=== PATIENT | male | born 1960 | race Caucasian/White ===

== ENCOUNTER 2019-07-08 10:24 | Inpatient (IN) ==
--- NOTE | 2019-07-08 13:01 | Internal Med History&Physical ---
Date of Encounter: 07/08/19 Time of Encounter: 12:58 Internal Medicine - H&P: HPI Chief complaint: send by orthopedics Admitted From: Home Plans for Post Hospital Care: Home History of present illness: Mr. Verma is a 59 year old male with past medical history of sleep apnea on CPAP, CHF, diabetes, hypertension, history of ME in 97 came in from orthopedics office as a direct admitted for shoulder infection. Patient reportedly had 3 surgeries in the past 2 months on his shoulder the last one on 06/26/19 with right he refers total shoulder revision. Patient was seen by orthopedist at his clinic yesterday with complain of fevers chills, redness and swelling since he woke up yesterday. Patient was given antibiotic as outpatient however due to failure of improvement as he was seen today he was asked to come to Hospital for further management. Patient reports drenching sweats for about a week and diarrhea 3 episodes yesterday. Denies any chest pain shortness of breath leg swelling or abdominal pain. He denies any shoulder pain and has only noticed redness and swelling that suddenly started on Saturday. Patient was directly admitted for further workup and treatment. Above-mentioned history was confirmed. Patient without any pain or other complaints. Denies any allergies. Past Med Surg Social Fam HX - Past Medical History Medical history: coronary artery disease, diabetes, GERD, hyperlipidemia, hypertension, myocardial infarction Additional medical history: sleep apnea. hiatal hernia. melanoma neck and fa ce. melanoma Psychiatric history: anxiety, depression - Past Surgical History Surgical History: cholecystectomy, IVC Filter Additional surgical history: heart cath. freeman. rotator cuff. lap band. right shoulder x 3. heart stent - Social History Smoking Status: Former smoker Smokeless Tobacco Status: No Alcohol use: none Drug use: none - Family History Mother Living Status: Age at : 53 Cause of : ME Hx Family Cardiac Disorders: Yes Hx Family Reproductive Disorders: Yes Father Living Status: Age at : 78 Hx Family Respiratory Disorders: Yes Internal Medicine - H&P: Meds Amlodipine Besylate 10 mg PO DAILY 05/27/19 [History] Aspirin [Adult Aspirin] 81 mg PO DAILY 05/27/19 [History] Furosemide [Lasix] 40 mg PO DAILY 05/27/19 [History] Gabapentin 1,200 mg PO TID 05/27/19 [History] Glimepiride [Amaryl] 4 mg PO DAILY 05/27/19 [History] Insulin Regular, Human [Novolin R] 10 unit SQ TIDWM 05/27/19 [History] Isosorbide MONOnitrate (24 HR) [Imdur] 60 mg PO DAILY 05/27/19 [History] Meloxicam 15 mg PO DAILY 05/27/19 [History] Metformin HCl 1,000 mg PO DAILY 05/27/19 [History] Metoprolol Succinate [Toprol Xl] 100 mg PO HS 05/27/19 [History] Pioglitazone HCl 45 mg PO DAILY 05/27/19 [History] Rosuvastatin Calcium 20 mg PO HS 05/27/19 [History] Venlafaxine HCl [Venlafaxine HCl ER] 225 mg PO DAILY 05/27/19 [History] hydrOXYzine HCl [Hydroxyzine HCl] 25 mg PO Q8H PRN 05/27/19 [History] raNITIdine HCl [Zantac] 150 mg PO HS 05/27/19 [History] Terazosin [Hytrin] 5 mg PO HS 06/12/19 [History] Allergy/AdvReac Type Severity Reaction Status Date / Time adhesive tape AdvReac Rash Verified 05/27/19 07:06 All Systems PM: A 10-system review of systems was performed and is negative for pertinent findings except as documented above in the HPI. - Constitutional Exam: Constitutional: Vitals as noted. Conversant. No Apparent Distress. Morbidly obese. Eyes : Sclera white, conjunctiva clear, no lid lag, PEARLA. ENT : Grossly normal hearing. Oropharyngeal exam unremarkable. Moist mucus membranes. No JVD, no cervical lymphadenopathy. no thyromegaly or mass. Respiratory : Clear to auscultation bilaterally. No accessory muscle use, rales, rhonchi or wheezes Cardiovascular : RRR, +S1, +S2. no murmur, gallop, rubs. No chest wall tenderness GI/Abdominal : Soft, Non-tender, Non-distended, normal bowel sounds, no peritoneal signs. no orgenomegaly or mass appreciated. no hernia. Musculoskeletal: pulses palpable and symmetrical in UE/LE. no calf tenderness. Rt shoulder with induration, redness over incision 10x10 cm. Not tender. Has fluctuance Neurological: AO X3, CN II-XII grossly intact, grossly normal motor and sensory exam. Skin: as above Internal Med - H&P Results - Impressions ITS Impressions Shoulder CT 07/08/19 12:14 IMPRESSION: Large (approximately 12 x 9 x 7 cm) air and fluid collection overlying the anterior aspect of the right shoulder arthroplasty involving the subcutaneous tissues, anterior shoulder musculature and surrounding the prosthesis. This is most consistent with abscess. D/ / 07/08/2019 12:32:48 Josef Chew MD / Trudi dale Interpreting Provider: Josef Chew MD - Assessment and Plan (1) Shoulder abscess Current Visit: Yes Status: Acute Assessment and plan: Patient with signs of cellulitis and CT with evidence of abscess. Patient has prosthesis in right shoulder. Orthopedics has been consulted and patient will likely go for surgery tomorrow for washout. We will keep nothing by mouth after midnight Patient likely with septic arthritis and will need long-term IV antibiotic. We will start empiric vancomycin and Zosyn for now and consult infectious disease. Patient hemodynamically stable. We will obtain CBC, BMP, ESR, CRP. (2) Diabetes Current Visit: Yes Status: Acute Assessment and plan: Keep patient on sliding scale insulin and diabetic diet Accu-Cheks and 5 premature insulin Hold home oral hypoglycemics for now Qualifiers: Diabetes mellitus type: type 2 Diabetes mellitus moth exterminator insulin use: with moth exterminator use Diabetes mellitus complication status: without complication Qualified Code(s): E11.9 - Type 2 diabetes mellitus without complications; Z79.4 - prison (current) use of insulin (3) HTN (hypertension) Current Visit: Yes Status: Acute Assessment and plan: Continue home Toprol, Imdur and amlodipine Qualifiers: Hypertension type: essential hypertension Qualified Code(s): I10 - Essential (primary) hypertension (4) CHF (congestive heart failure) Current Visit: Yes Status: Acute Assessment and plan: Patient with known history of CHF on Lasix at home unclear systolic or diastolic. Given patient plan for surgery of an EKG and echocardiogram. Patient without chest pain at this point or signs of volume overload. Hold Lasix for now. Qualifiers: Heart failure type: unspecified Heart failure chronicity: chronic Qualified Code(s): I50.9 - Heart failure, unspecified (5) Sleep apnea Current Visit: Yes Status: Acute Assessment and plan: We will keep patient on CPAP at night Qualifiers: Sleep apnea type: unspecified type Qualified Code(s): G47.30 - Sleep apnea, unspecified (6) Arthritis Current Visit: Yes Status: Acute Assessment and plan: Long-standing history of arthritis in knees and shoulder and back We will consult PT and OT after procedure. (7) DVT prophylaxis Current Visit: Yes Status: Acute Assessment and plan: Keep on heparin subcutaneous - Time Spent With Patient Total time spent is greater than 50% in coordination of care (as documented) at patient's floor/unit and/or counseling patient:
[2019-07-08] MEDS ORDERED: Naloxone 0.4 MG/ML INJ IVP PRN (13:02)
[2019-07-08 14:20] LABS: Hemoglobin 11.5 g/dL (12.9-16.9); Mean Corpuscular Hemoglobin 26.6 pg (28.0-33.3); Red Cell Distribution Width 13.4 % (11.5-14.5)
[2019-07-08 14:34] LABS: BUN/Creatinine Ratio 14 (6-26); Blood Urea Nitrogen 13 mg/dL (8-23); C-Reactive Protein 142 mg/L (Less than 10); Calcium 9.2 mg/dL (8.6-10.3); Carbon Dioxide 31 mEq/L (23-29); Chloride 98 mEq/L (98-107); Glucose 264 mg/dL (70-105); Osmolality,Calculated 291 (280-300); Potassium 4.1 mEq/L (3.5-5.1); Sodium 136 mEq/L (136-145); eGFR For African Americans > 60 (> 60); eGFR For Non-African Americans > 60 (> 60)
[2019-07-08 15:42] LABS: Basophils # 0.1 K/mcL (0.0-0.2); Basophils % 0.8 %; Eosinophils # 0.2 K/mcL (0.0-0.6); Eosinophils % 1.6 %; Hematocrit 35.6 % (37.5-50.1); Immature Granulocytes % 0.5 % (0-4); Lymphocytes # 2.1 K/mcL (0.6-4.6); Lymphocytes % 21.1 %; Mean Corpuscular HGB Conc 32.3 g/dL (31.6-35.5); Mean Corpuscular Volume 82.2 fL (83.0-100.0); Mean Platelet Volume 10.2 fL (9.4-12.4); Monocytes # 0.7 K/mcL (0.0-1.3); Monocytes % 7.3 %; Platelet Count 436 K/mcL (140-400); Red Blood Count 4.33 M/mcL (4.19-5.50); Segmented Neutrophils % 68.7 %; White Blood Count 10.1 K/mcL (4.3-11.1)
[2019-07-08 15:48] LABS: Neutrophils # 6.9 K/mcL (1.6-8.9)
--- NOTE | 2019-07-08 15:51 | Infectious Disease Consult ---
Infectious Disease-Consult - Encounter Date/Time Date of Encounter: 07/08/19 Time of Encounter: 15:48 - Data of Consult Patient: new to practice Reason for consult: "septic arthritis" Consult date: 07/08/19 Requesting Physician: Laurel Stratton MD Primary Care Provider: Federico Clark DO - [facility] HPI: Mr. Verma is a 59-year-old male with a past medical history of obstructive sleep apnea compliant with CPAP, CHF, diabetes, hypertension, NM, and CAD. He was admitted to the hospital 07/08/15 for right shoulder infection. We are consulted 07/08/19 for further workup and treatment recommendations for right shoulder infection. Briefly, the patient is a 59-year-old male with past medical history as stated above. The patient underwent a right reverse total shoulder 05/27/[address] Wyatt. About 2 weeks postop, he developed dislocation of the shoulder and on 06/12/19, he underwent a right open reduction revision total shoulder with revision of humeral tray with poly-exchange. He then developed a second dis location and underwent a right revision total shoulder glenosphere, revision of humeral tray with poly-exchange. He was doing well postop until Saturday when he developed a small red area to the right shoulder along the incision. He was seen by orthopedics. He was given a dose of IM Rocephin in the office. He was advised to come back to the office today for a re-check. He had a stat CT scan of the shoulder that showed a large air and fluid collection overlying the anterior aspect of the right shoulder arthroplasty involving the subcutaneous tissues, anterior shoulder musculature, and surrounding the prosthesis, most consistent with an abscess. Directly admitted to the hospital for further e valuation and treatment. Since admission, the patient has remained afebrile hemodynamically stable. A white blood cell count was not checked. ESR is elevated at 112 with a CRP of 142. Currently, the patient is on vancomycin and Zosyn. We have been asked to evaluate and make further recommendations. During my exam today, the patient endorsed a history as stated above. He reports some subjective chills last week that he thought was related to getting his flu shot recently. He denies any known fevers or rigors. Denies any headache or neck pain. Denies chest pain, shortness of breath, or cough. Denies nausea, vomiting, or constipation. Reports some loose stool for the past 2 days. Denies abdominal pain or urinary complaints. Denies oral thrush or skin rashes. Denies any increased pain in the right shoulder. States the reddened area has progressively worsened since it started. He states that previously his surgical site was well-healed, but since development of the redness he has developed some scabs along the surgical site. He denies any drainage from the surgical site. Range of motion has not been assessed due to his postop instructions. He denies oral thrush or other skin rashes. The patient lives at home with his . He does not work outside the home. He denies tobacco, alcohol, illicit drug use. Denies chronic infectious diseases. Denies any recent travel outside the [facility]. Denies any pet or animal exposures. - ROS Review of Systems: All systems reviewed and no additional remarkable complaints except as stated. - Results CBC & Chem 7: 07/08/19 13:07 07/08/19 13:07 - Exam Vitals: Temp Pulse Resp BP Pulse Ox 98.2 F 97 16 140/84 98 07/08/19 12:30 07/08/19 12:30 07/08/19 12:30 07/08/19 12:30 07/08/19 12:30 Exam: Head: Atraumatic, normal inspection, normocephalic. Eye: EOMI, PERRLA, no scleral icterus noted. ENT: Mucous membranes moist. No odontogenic infection noted. Neck: Normal inspection, no meningismus. Respiratory: Clear to auscultation. No rales, respiratory distress, rhonchi, or wheezes noted. Cardiovascular: Regular rate and rhythm, S1 and S2 audible. No murmurs, rubs, or gallops. GI: Soft, obese, normal bowel sounds. Non-tender. Extremities:No joint swelling, pedal edema noted. Right shoulder surgical incision intact with wound edges well-approximated. No drainage. Scabbing noted to the distal aspect. Erythema noted to the distal aspect of the surgical incision in a round distribution. Warm and tender to touch. Back: Normal inspection. No vertebral tenderness noted. Neurological: Alert, oriented 3, no focal deficits. Psychiatric: normal affect, normal mood. Skin: Dry, intact, warm. Normal color. No rashes. Amlodipine Besylate 10 mg PO DAILY 05/27/19 [History] Aspirin [Adult Aspirin] 81 mg PO DAILY 05/27/19 [History] Furosemide [Lasix] 40 mg PO DAILY 05/27/19 [History] Gabapentin 1,200 mg PO TID 05/27/19 [History] Glimepiride [Amaryl] 4 mg PO DAILY 05/27/19 [History] Insulin Regular, Human [Novolin R] 10 unit SQ TIDWM 05/27/19 [History] Isosorbide MONOnitrate (24 HR) [Imdur] 60 mg PO DAILY 05/27/19 [History] Meloxicam 15 mg PO DAILY 05/27/19 [History] Metformin HCl 1,000 mg PO DAILY 05/27/19 [History] Metoprolol Succinate [Toprol Xl] 100 mg PO HS 05/27/19 [History] Pioglitazone HCl 45 mg PO DAILY 05/27/19 [History] Rosuvastatin Calcium 20 mg PO HS 05/27/19 [History] Venlafaxine HCl [Venlafaxine HCl ER] 225 mg PO DAILY 05/27/19 [History] hydrOXYzine HCl [Hydroxyzine HCl] 25 mg PO Q8H PRN 05/27/19 [History] HYDROcodone/Acet 10/325 mg [[place] 10-325 mg] 1 tab PO BID PRN 07/08/19 [History] Lisinopril [Zestril] 5 mg PO DAILY 07/08/19 [History] Tamsulosin HCl 0.4 mg PO DAILY 07/08/19 [History] Allergy/AdvReac Type Severity Reaction Status Date / Time adhesive tape AdvReac Rash Verified 05/27/19 07:06 oxycodone [From OxyContin] AdvReac Nightmare Verified 07/08/19 21:44 - Assessment and Plan (1) Shoulder abscess Current Visit: Yes Status: Acute Location: Right shoulder. Causative organism: Unclear. CT of the right shoulder shows a large air and fluid filled collection overlying the anterior aspect of the right shoulder arthroplasty involving the subcutaneous tissues, anterior shoulder musculature, and surrounding the prosthesis, most consistent with abscess. Likely secondary to right shoulder surgery. No SIRS criteria. ESR 112, CRP 142. Currently on Vanc and Zosyn. SNOMED Code(s): 38962655 (2) Status post reverse total arthroplasty of right shoulder Current Visit: Yes Status: Acute SNOMED Code(s): 23328843288442076, 93415610346206036 (3) Diabetes Current Visit: Yes Status: Acute Recommend aggressive glucose monitoring and control to promote wound healing and prevent reinfection. Management per the primary team. Qualifiers: Diabetes mellitus type: type 2 Diabetes mellitus mcfp insulin use: wit h mcfp use Diabetes mellitus complication status: without complication Qualified Code(s): E11.9 - Type 2 diabetes mellitus without complications; Z79.4 - terminologist (current) use of insulin SNOMED Code(s): 87345404 (4) HTN (hypertension) Current Visit: Yes Status: Chronic Qualifiers: Hypertension type: essential hypertension Qualified Code(s): I10 - Essential (primary) hypertension SNOMED Code(s): 75974350 (5) CHF (congestive heart failure) Current Visit: Yes Status: Chronic Qualifiers: Heart failure type: unspecified Heart failure chronicity: chronic Qualified Code(s): I50.9 - Heart failure, unspecified SNOMED Code(s): 13820720 (6) Sleep apnea Current Visit: Yes Status: Chronic Qualifiers: Sleep apnea type: unspecified type Qualified Code(s): G47.30 - Sleep apnea, unspecified SNOMED Code(s): 88813733 (7) Arthritis Current Visit: Yes Status: Chronic SNOMED Code(s): 6963385 - Recommendations Recommendations: Check CBC. Await intra-op cultures and findings. Please send for aerobic, anaerobic, AFB, and fungal. Wound care and activity per the ortho team. Continue Vancomycin IV. Pharmacy to dose. Goal trough ~15. Continue Zosyn 3.375 grams IV Q8H. Duration of treatment depends on the clinical picture. Monitor renal function and for drug toxicity and dose-adjust antibiotics. Past Med Surg Social Fam HX - Past Medical History Attestation: Yes The following information was validated with the patient. Source: patient, old records reviewed, nursing notes reviewed Medical history: coronary artery disease, diabetes, GERD, hyperlipidemia, hyper tension, myocardial infarction Additional medical history: sleep apnea. hiatal hernia. melanoma neck and face. melanoma Psychiatric history: anxiety, depression - Past Surgical History Surgical History: cholecystectomy, IVC Filter Additional surgical history: heart cath. freeman. rotator cuff. lap band. right shoulder x 3. heart stent - Social History Smoking Status: Former smoker Smokeless Tobacco Status: No Alcohol use: none Drug use: none Occupational status: unemployed Current living situation: Home, With Family Activity Level: Independent ambulation Recent Out of Country Travel Within the Last 8 Weeks: No Exposure or Possible Exposure to Illness During Travel: No - Family History Mother Living Status: Age at : 53 Cause of : NM Hx Family Cardiac Disorders: Yes Hx Family Reproductive Disorders: Yes Father Living Status: Age at : 78 Hx Family Respiratory Disorders: Yes Consult Discharge Plan - Plan Referrals: Federico Clark DO [Primary Care Provider] - - Attending Attestation I have personally performed a face to face evaluation on this patient. I have reviewed and agree with the care plan. This is an addendum to original report dictated by Tamera Berg CNP. Please refer to Tamera's note for full detail. Agree with above history of present illness, review of system and physical exam findings. Assessment and plan: 1.right shoulder abscess CT right shoulder large air-fluid level collection overlying the anterior aspect of the right shoulder consistent with an abscess causative organism clear going to surgery in the a.m. Status post reversal total arthroplasty of the right shoulder 05/27/2019 Status post right open reduction reverse total shoulder for right shoulder traumatic instability 06/12/2019 Status post right reverse total shoulder revision of glenosphere, revision tray with polyexchange 06/26/2019 Morbid obesity Diabetes mellitus type 2 Hypertension CHF Arthritis Recommendations Get baseline labs including CBC, BMP, ESR and CRP Get blood cultures 2 Await Intra-Op cultures for aerobic, anaerobic, fungal and AFB Continue vancomycin and Zosyn Goal vancomycin trough around 15 Duration of treatment depends on the clinical picture and Intra-Op findings
[2019-07-08] MEDS ORDERED: Insulin Regular, Human 100 UNIT/ML SQ SCH ×2 (17:00)
[2019-07-08] MEDS: Insulin LISPRO 300 UNITS/3 ML VIAL SQ SCH ×2 (17:45)
--- NOTE | 2019-07-08 18:30 | Anesthesia Evaluation PreOp ---
Date of Encounter: 07/08/19 Time of Encounter: 18:30 - Past History Planned Operation: Incision Drainage Rt Shoulder Cardiac History: [place] (2002 balloon angioplasty), HTN, Hyperlipidemia, Cardiac Stent (2012 possible stent) Pulmonary History: Former smoker, COPD, LEATHA Dx (non compliant with CPAP) AUDIO VISUAL COLLECTIONS COORDINATOR History: Other (Anxiety Depression) Other Medical History: Hepatic (Fatty Liver), Diabetes Type II, GERD, Other (Morbid Obesity) Anesthesia History: No Prior Anesthetic Complications Alcohol Use: none Drug use: none Medications and Allergies Amlodipine Besylate 10 mg PO DAILY 05/27/19 [History] Aspirin [Adult Aspirin] 81 mg PO DAILY 05/27/19 [History] Furosemide [Lasix] 40 mg PO DAILY 05/27/19 [History] Gabapentin 1,200 mg PO TID 05/27/19 [History] Glimepiride [Amaryl] 4 mg PO DAILY 05/27/19 [History] Insulin Regular, Human [Novolin R] 10 unit SQ TIDWM 05/27/19 [History] Isosorbide MONOnitrate (24 HR) [Imdur] 60 mg PO DAILY 05/27/19 [History] Meloxicam 15 mg PO DAILY 05/27/19 [History] Metformin HCl 1,000 mg PO DAILY 05/27/19 [History] Metoprolol Succinate [Toprol Xl] 100 mg PO HS 05/27/19 [History] Pioglitazone HCl 45 mg PO DAILY 05/27/19 [History] Rosuvastatin Calcium 20 mg PO HS 05/27/19 [History] Venlafaxine HCl [Venlafaxine HCl ER] 225 mg PO DAILY 05/27/19 [History] hydrOXYzine HCl [Hydroxyzine HCl] 25 mg PO Q8H PRN 05/27/19 [History] raNITIdine HCl [Zantac] 150 mg PO HS 05/27/19 [History] Terazosin [Hytrin] 5 mg PO HS 06/12/19 [History] Allergy/AdvReac Type Severity Reaction Status Date / Time adhesive tape AdvReac Rash Verified 05/27/19 07:06 - Meds/Allergy Pre-op Review Medications Reviewed: Yes Allergies Reviewed: Yes Beta Blockers on Current Med List: Yes (on metoprolol) Anesthesia Results - Labs 07/08/19 13:07 07/08/19 13:07 - Imaging EKG: report reviewed (SR) Anesthesia Exam O2 Sat Height 1.8 m Weight 148.325 kg O2 Sat by Pulse Oximetry 99 O2 Sat by Pulse Oximetry 98 Vital Signs Temp Pulse Resp BP Pulse Ox 98.2 F 97 16 140/84 98 07/08/19 12:30 07/08/19 12:30 07/08/19 12:30 07/08/19 12:30 07/08/19 12:30 Height: 5'11 Weight: 327 lbs NPO (# of Hours): MN Pain Scale: 0 - HEENT Pupil (Motor): Pupils equal, EOMI Mallampati: III Teeth: Edentulous Oral Opening: Greater than 3 - AUDIO VISUAL COLLECTIONS COORDINATOR LOC: Oriented AUDIO VISUAL COLLECTIONS COORDINATOR Motor: Normal RUE, Normal LUE, Normal RLE, Normal LLE, Normal Face AUDIO VISUAL COLLECTIONS COORDINATOR Sensory: Normal: RUE, LUE, RLE, LLE, Face - Cardiac Rhythm: Regular Murmur: None JVD: No Carotid Bruit: No - Pulmonary Breath Sounds: bilateral Clear Respiratory Effort: Symmetrical Anesthesia Assess/Plan ASA Score: 3 (CAD HTN DM MO LEATHA) Level of consciousness: Cooperative, Oriented Anesthetic Plan: General Autologous Blood: No Monitoring Plan: Standard Monitors Recovery Plan: PACU (Discussed GA, agrees to proceed)
[2019-07-08] MEDS ORDERED: Perflutren Lipid Microsphere 1.3 ML in 0.9 % Sodium Chloride 8.7 ML IVP ONE ×2 (18:45→21:51)
[2019-07-08] MEDS: Gabapentin 400 MG CAPSULE PO SCH (20:05)
[2019-07-08] MEDS: Piperacillin/Tazobactam 3.375 GM in 0.9 % Sodium Chloride Mini Bag 100 ML IVPB SCH ×2 (20:05→23:27)
[2019-07-08] MEDS ORDERED: Insulin DETEMIR 100 UNIT/ML X5UNITS SQ SCH (21:00)
[2019-07-08] MEDS ORDERED: Ibuprofen 800 MG TABLET PO ONE (21:00)
[2019-07-08] MEDS ORDERED: Metoprolol XL (24 HR) Succ 50 MG TAB.ER.24H PO SCH (21:00)
[2019-07-08] MEDS: *HR* Heparin 5,000 UNIT/ML VIAL SQ SCH (21:19)
[2019-07-09] MEDS ORDERED: Acetaminophen 325 MG TABLET PO PRN (02:18)
[2019-07-09] MEDS: *HR* Heparin 5,000 UNIT/ML VIAL SQ SCH ×3 (04:45→20:35)
--- NOTE | 2019-07-09 06:32 | Orthopedic Consult Note ---
Date of Encounter: 07/08/19 Time of Encounter: 11:30 Assessment and Plan (1) Cellulitis of right shoulder Current Visit: Yes Status: Acute (2) History of dislocation of shoulder Current Visit: Yes Status: Acute (3) Status post surgery for recurrent dislocation of shoulder Current Visit: Yes Status: Acute (4) Status post reverse total arthroplasty of right shoulder Current Visit: Yes Status: Acute History of Present Illness Chief complaint: red right shoulder HPI: Mr. Verma is a 59 year old male s/p Right reverse total shoulder revision of glenosphere, revision [dislocation] 06/26/19, Right open reduction reverse total shoulder, revision humeral tray with poly exchange [dislocation] 06/12/19, Right TSR Reverse 06/06/2019. Patient seen 07/07 in office by this author for redness to the right shoulder that developed overnight per patient. Xrays demonstrated no dislocation or change in hardware, but did demonstrate subcutaneous gas. Patient was given 2 g rocephin, had in office ultrasound which did not reveal any subcutaneous fluid collection. Patient was not in agreement to wait to get CT scan yesterday evening. We arranged for him to get CT scan prior to office appt this morning, however, patient states he did not get the message from his spouse. He was also instructed to nut picker antibiotics Bactrim DS and Keflex from pharmacy yesterday on his way home, however, patient stated that he did not get the antibiotics that were sent yesterday. He states he was planning to pick them up after his appointment today. Deeper erythema noted to incision area compared to yesterday. Patient with no drainage or fluctuance. Tissue is indurated now in area of erythema. Incision intact. Neurovascularly intact. Stoker Mechanic strength intact. Slingshot brace with abduction pillow. Case discussed with Dr. Wyatt. Concern for septic joint especially with patient not getting antibiotics as ordered yesterday and no CT scan. Spoke with admitting hospitalist who agreed to accept patient. Patient direct admitted to hospitalist service for medical management, initiation of IV antibiotics with stat CT scan and possible aspiration for cultures versus washout. Bed management contacted and patient transported to bed by transporter. Patient to be seen inpatient by Dr. Wyatt. CT scan reviewed by Dr. Wyatt - recommendation for irrigation and debridement 07/09. Discussed with infectious disease patient's case with concern for multi-source infection with recommendation for aerobic, anaerobic, fungal, and AFB cultures intraop. NPO midnight Continue no shoulder or elbow motion Brace at all times Remove for hygiene only CHG bath tomorrow for preop Keep incision area covered with sterile gauze and paper tape Please reach out with any questions or concerns regarding patient's orthopedic health Past Med Surg Social Fam HX - Past Medical History Medical history: coronary artery disease, diabetes, GERD, hyperlipidemia, hypertension, myocardial infarction Additional medical history: sleep apnea. hiatal hernia. melanoma neck and face. melanoma Psychiatric history: anxiety, depression - Past Surgical History Surgical History: cholecystectomy, IVC Filter Additional surgical history: heart cath. freeman. rotator cuff. lap band. right shoulder x 3. heart stent - Social History Smoking Status: Former smoker Smokeless Tobacco Status: No Alcohol use: none Drug use: none - Family History Mother Living Status: Age at : 53 Cause of : NC Hx Family Cardiac Disorders: Yes Hx Family Reproductive Disorders: Yes Father Living Status: Age at : 78 Hx Family Respiratory Disorders: Yes Medications and Allergies Amlodipine Besylate 10 mg PO DAILY 05/27/19 [History] Aspirin [Adult Aspirin] 81 mg PO DAILY 05/27/19 [History] Furosemide [Lasix] 40 mg PO DAILY 05/27/19 [History] Gabapentin 1,200 mg PO TID 05/27/19 [History] Glimepiride [Amaryl] 4 mg PO DAILY 05/27/19 [History] Insulin Regular, Human [Novolin R] 10 unit SQ TIDWM 05/27/19 [History] Isosorbide MONOnitrate (24 HR) [Imdur] 60 mg PO DAILY 05/27/19 [History] Meloxicam 15 mg PO DAILY 05/27/19 [History] Metformin HCl 1,000 mg PO DAILY 05/27/19 [History] Metoprolol Succinate [Toprol Xl] 100 mg PO HS 05/27/19 [History] Pioglitazone HCl 45 mg PO DAILY 05/27/19 [History] Rosuvastatin Calcium 20 mg PO HS 05/27/19 [History] Venlafaxine HCl [Venlafaxine HCl ER] 225 mg PO DAILY 05/27/19 [History] hydrOXYzine HCl [Hydroxyzine HCl] 25 mg PO Q8H PRN 05/27/19 [History] HYDROcodone/Acet 10/325 mg [[place]aha 10-325 mg] 1 tab PO BID PRN 07/08/19 [History] Lisinopril [Zestril] 5 mg PO DAILY 07/08/19 [History] Tamsulosin HCl 0.4 mg PO DAILY 07/08/19 [History] Allergy/AdvReac Type Severity Reaction Status Date / Time adhesive tape AdvReac Rash Verified 05/27/19 07:06 oxycodone [From OxyContin] AdvReac Nightmare Verified 07/08/19 21:44 All Systems Reviewed: The remainder of the systems were reviewed and are negative Physical Exam - Constitutional Vitals: Temp Pulse Resp BP Pulse Ox 97.5 F L 94 17 169/96 96 07/09/19 04:18 07/09/19 04:18 07/09/19 04:18 07/09/19 04:18 07/09/19 04:18 Results - Labs Result Diagrams: 07/08/19 13:07 07/08/19 13:07 Labs: Abnormal lab results Hgb 11.5 g/dL (12.9-16.9) L 07/08/19 13:07 Hct 35.6 % (37.5-50.1) L 07/08/19 13:07 MCV 82.2 fL (83.0-100.0) L 07/08/19 13:07 MCH 26.6 pg (28.0-33.3) L 07/08/19 13:07 Plt Count 436 K/mcL (140-400) H 07/08/19 13:07 ESR 112 mm/hr (0-10) H 07/08/19 13:07 Carbon Dioxide 31 mEq/L (23-29) H 07/08/19 13:07 Glucose 264 mg/dL (70-105) H 07/08/19 13:07 POC Glucose 240 mg/dL (70-99) H 07/08/19 20:39 C-Reactive Protein 142 mg/L (Less than 10) H 07/08/19 13:07 H & H 07/08/19 Range/Units 13:07 Hgb 11.5 L (12.9-16.9) g/dL Hct 35.6 L (37.5-50.1) % All other labs normal. Consult Discharge Plan - Plan Referrals: Federico Clark, [Primary Care Provider] -
--- NOTE | 2019-07-09 07:51 | Orthopedics Progress Note ---
Date of Encounter: 07/09/19 Time of Encounter: 07:45 Subjective Interval history: 59-year-old male patient well known to me who has had multiple right shoulder surgeries following traumatic instability of a right reverse total shoulder arthroplasty. He was seen in the office 2 days ago with some developing erythema over the incision. At that time he was was given 2 g rocephin, had in office ultrasound which did not reveal any subcutaneous fluid collection and CT scan was recommended, however the patient was not in agreement to wait to get CT scan that day and he also did not case picker his oral antibiotics prior to recheck yesterday. He was then admitted yesterday for further evaluation and workup. On evaluation of the shoulder he has erythema over the anterior aspect of the shoulder in the area of the incision. Some induration of this tissue. No fluctuance or drainage from incision. He is neurovascularly intact over ax/m/r/u. Discussed treatment options with patient and with the concern for deeper infection will plan for right shoulder irrigation and debridement today. He will continue IV antibiotics per infectious disease recommendation, appreciate recs. Will plan for aerobic, anaerobic, fungal, and AFB cultures intraop. NPO Continue no shoulder or elbow motion Brace at all times Remove for hygiene only Objective Vital signs: Vital Signs Temp Pulse Resp BP Pulse Ox 07/09/19 06:20 97.8 F 89 16 156/87 95 07/09/19 04:18 97.5 F L 94 17 169/96 96 07/08/19 23:55 99.9 F H 90 20 148/65 90 07/08/19 19:57 99.0 F 107 16 136/70 93 07/08/19 14:30 98.4 F 89 16 144/81 99 07/08/19 12:30 98.2 F 97 16 140/84 98 Intake and Output 07/08/19 07/08/19 07/09/19 15:59 23:59 07:59 Intake Total 500 / 500 Balance 500 / 500 Intake: IV Fluids 500 / 500 Vancocin 2,000 MG In 0.9 % 500 / 500 Sodium Chloride 500 ML @ 250 mls/hr IVPB Q12H [facility] Rx#: [id number] Other: # Voids 1 # Bowel Movements 2 Weight 148.325 kg 148.3 kg Blood Glucose* 258 240 Patient Weight 07/09/19 23:59 Weight 148.3 kg - Labs CBC & BMP: 07/08/19 13:07 07/08/19 13:07 Labs: Abnormal lab results Hgb 11.5 g/dL (12.9-16.9) L 07/08/19 13:07 Hct 35.6 % (37.5-50.1) L 07/08/19 13:07 MCV 82.2 fL (83.0-100.0) L 07/08/19 13:07 MCH 26.6 pg (28.0-33.3) L 07/08/19 13:07 Plt Count 436 K/mcL (140-400) H 07/08/19 13:07 ESR 112 mm/hr (0-10) H 07/08/19 13:07 Carbon Dioxide 31 mEq/L (23-29) H 07/08/19 13:07 Glucose 264 mg/dL (70-105) H 07/08/19 13:07 POC Glucose 240 mg/dL (70-99) H 07/08/19 20:39 C-Reactive Protein 142 mg/L (Less than 10) H 07/08/19 13:07 Consult Discharge Plan - Plan Referrals: Federico Clark DO [Primary Care Provider] -
[2019-07-09] MEDS: Insulin LISPRO 300 UNITS/3 ML VIAL SQ SCH ×7 (07:56→21:44)
[2019-07-09] MEDS: Piperacillin/Tazobactam 3.375 GM in 0.9 % Sodium Chloride Mini Bag 100 ML IVPB SCH ×3 (07:58→23:12)
[2019-07-09] MEDS: Gabapentin 400 MG CAPSULE PO SCH ×3 (07:58→20:31)
--- NOTE | 2019-07-09 08:25 | Internal Med Progress Note ---
<Tariq Whyte - Last Filed: 07/09/19 14:08> Hospitalist Progress Note - Encounter Date of Encounter: 07/09/19 Time of Encounter: 09:45 - Subjective Interval History: Patient lying down in bed. Comfortable. Complains of subjective fevers. Pain in his right shoulder is stable. Complains of urinary hesitancy chest pain or palpitations. - Exam Vitals: Temp Pulse Resp BP Pulse Ox 97.6 F 105 22 146/80 91 07/09/19 13:49 07/09/19 13:49 07/09/19 13:49 07/09/19 13:49 07/09/19 13:49 Exam: General: Patient is alert, no acute distress, oriented x 3 Respiratory: Good respiratory effort. Normal breath sounds. No wheezing or crackles. Cardiovascular: Regular rate and rhythm. s1 and s2 normal No clicks, rubs, gallops, or murmurs. No pedal edema Abdomen: Abdomen is soft, nontender. Bowel sounds are present Musculoskeletal: Right shoulder recent incisional scar with erythema and fluctuance underneath. Tender to deep palpation. No drainage. Skin: warm, dry, intact. Neuro: Alert oriented x 3 normal cranial nerves, no focal deficits - Assessment and Plan (1) Shoulder abscess Current Visit: Yes Status: Acute (2) Diabetes Current Visit: Yes Status: Acute (3) HTN (hypertension) Current Visit: Yes Status: Chronic (4) CHF (congestive heart failure) Current Visit: Yes Status: Chronic (5) Sleep apnea Current Visit: Yes Status: Chronic (6) Arthritis Current Visit: Yes Status: Chronic (7) DVT prophylaxis Current Visit: Yes Status: Acute - Time Spent with Patient Total time spent is greater than 50% in coordination of care (as documented) at patient's floor/unit and/or counseling patient: Internal Medicine: Result - Labs CBC & Chem 7: 07/08/19 13:07 07/08/19 13:07 Labs: Short CBC 07/08/19 Range/Units 13:07 WBC 10.1 (4.3-11.1) K/mcL Hgb 11.5 L (12.9-16.9) g/dL Hct 35.6 L (37.5-50.1) % Plt Count 436 H (140-400) K/mcL Neutrophils # 6.9 (1.6-8.9) K/mcL BMP 07/08/19 13:07 Sodium 136 Potassium 4.1 Chloride 98 Carbon Dioxide 31 H BUN 13 Creatinine 0.91 Glucose 264 H Calcium 9.2 - Impressions Impressions Echocardiogram 07/08/19 21:26 Impressions: No pulmonary hypertension. LVEF 65-70%. No segmental dysfunction. No significant valvular dysfunction. Left Ventricular Wall Motion: Rest Echo Findings The apex, apical inferior, mid inferior, basal inferior, apical anterior, mid anterior, basal anterior, apical septal, mid inferior septal, basal inferior septal, apical lateral, mid anterior lateral, basal anterior lateral, mid anterior septal, mid inferior lateral, basal anterior septal and basal inferior lateral chen were hyperkinetic. Findings: Study Quality * Technically sub-optimal due to body habitus. ECG Findings * Sinus tachycardia. Aorta * Normally sized aortic root in portion visualized Tricuspid Valve * Trace tricuspid regurgitation. * No tricuspid stenosis. * Estimated RVSP is 24 mmHg. * Estimated RA pressure is 0-5 mmHg. * No pulmonary hypertension. * Tricuspid valve not well visualized. Pulmonic Valve * Pulmonic valve not well visualized. * No pulmonic stenosis. * No pulmonic regurgitation. Aortic Valve * Aortic valve not well visualized. * No aortic regurgitation. * No aortic stenosis. IVC * Normal IVC dimensions and inspiratory collapse. Left Ventricle * LVEF 65-70%. * No segmental dysfunction. * Mild left ventricular diastolic dysfunction. Consult Discharge Plan - Plan Referrals: Federico Clark DO [Primary Care Provider] - - Attending Attestation I saw evaluated and examined this patient and reviewed objective data including labs and my medical decision-making was reviewed with the Medical Student. I agree with the documented findings, disposition and treatment plan as described except to any changes set forth below. We independently had [id number] contact with the patient. Possible septic arthritis involving artificial joint in right shoulder: Continue current antibiotics. Planned debridement and irrigation later today. Infectious disease and orthopedics following. Chronic diastolic congestive heart failure: Not in acute exacerbation. Continue home medications. Diabetes mellitus type 2: Monitor blood sugars. Diabetic diet when patient is able to eat. Will adjust insulin regimen according to blood sugars. Coronary artery disease: Continue aspirin, statin and beta felix. Essential hypertension: Blood pressure is fairly controlled. Continue current medications. DVT prophylaxis with subcutaneous heparin Moderate risk for complications <Jude Padilla - Last Filed: 07/09/19 16:01> Hospitalist Progress Note - Encounter Date of Encounter: 07/09/19 Time of Encounter: 09:39 - Subjective Interval History: Patient denies any acute events overnight. Has some rib pain that has been present since the surgery. Also says that he has some wheezing that he attributes to his CHF. Had a formed bowel movement yesterday. Also says that he is having trouble getting urine out. Recently been prescribed medicine for enla rged prostate but has yet to take it. Denies any chest pain, SOB, nausea, vomiting, abdominal pain, light headedness, painful calves, swelling, or dysuria. - Exam Vitals: Temp Pulse Resp BP Pulse Ox 97.8 F 89 16 156/87 95 07/09/19 06:20 07/09/19 06:20 07/09/19 06:20 07/09/19 06:20 07/09/19 06:20 Exam: Gen: AOx3 in no acute distress Eyes: SINDHU EOMI with no conjunctivitis Throat: Moist mucous membranes with no pharyngeal erythema CV: RRR with no murmur Resp: CTA in all lung pascual with no crackles GI: Soft, non-tender, obese abdomen. No masses or organomegally palpated Ext: DP 2/4 jack. No lower ext edema. Neuro: CN II- XII with no focal deficit. LE strength 5/5 jack. Derm: aproximately 10 cm surgical scar with approximated borders and no drainage present. Erythematous skin surrounding scar with some fluctuance present over the anterior right shoulder, that extends to the right chest wall. - Assessment and Plan (1) Shoulder abscess Current Visit: Yes Status: Acute Assessment and Plan: -Patient presented to Orthopedics office with fevers, chills, redness and swelling in right shoulder -3 previous surgeries in 2 months on R shoulder most recent on 06/26 for total shoulder revision -Worsening of symptoms despite outpatient antibiotics post op - Did not meet SIRS criteria - CT scan 07/08 suspicious for abscess in right shoulder involving arthroplasty, subcuaneous tissue, and musculature - ID Consulted recommending vancomycin IV, and zosyn 3.375 g IV Q8 - Orhto consulted performing shoulder irrigation and debridement today with plan for aerobic, anaerobic, fungal, and AFB cultures intraop - Echo 07/08 LVEF 65-70%,no Pulmonary HTN, no segmental dysfunctional, No valvular dysfunction - Creatinine 0.91 on 07/09 Plan - Wound care and shoulder stabilization per ortho recommendations - Cont Vancomycin and Zosyn per ID recommendations (2) Diabetes Current Visit: Yes Status: Acute Assessment and Plan: - Chronic DM II - POC 240 on 07/08 Plan: -Cont sliding scale insulin (3) HTN (hypertension) Current Visit: Yes Status: Chronic Assessment and Plan: - Chronic HTN - BP stable Plan - Cont home medications (4) CHF (congestive heart failure) Current Visit: Yes Status: Chronic Assessment and Plan: - chronic of unknown etiology - Takes lasix at home - Echo on 07/08 showed LVEF 65-70%, no pulmonary HTN, no segmental dysfunction or valvular dysfunction Plan: -Cont to hold home lasix (5) Sleep apnea Current Visit: Yes Status: Chronic Assessment and Plan: Cont CPAP DVT Prophylaxis: Sub cutaneous Heparin - Time Spent with Patient Total time spent is greater than 50% in coordination of care (as documented) at patient's floor/unit and/or counseling patient: Internal Medicine: Result - Labs CBC & Chem 7: 07/08/19 13:07 07/08/19 13:07 Labs: Short CBC 07/08/19 Range/Units 13:07 WBC 10.1 (4.3-11.1) K/mcL Hgb 11.5 L (12.9-16.9) g/dL Hct 35.6 L (37.5-50.1) % Plt Count 436 H (140-400) K/mcL Neutrophils # 6.9 (1.6-8.9) K/mcL BMP 07/08/19 13:07 Sodium 136 Potassium 4.1 Chloride 98 Carbon Dioxide 31 H BUN 13 Creatinine 0.91 Glucose 264 H Calcium 9.2 - Impressions Impressions Shoulder CT 07/08/19 12:14 IMPRESSION: Large (approximately 12 x 9 x 7 cm) air and fluid collection overlying the anterior aspect of the right shoulder arthroplasty involving the subcutaneous tissues, anterior shoulder musculature and surrounding the prosthesis. This is most consistent with abscess. D/ / 07/08/2019 12:32:48 Josef Chew MD / Trudi Soto Interpreting Provider: Josef Chew MD <Tariq Whyte - Last Filed: 07/09/19 14:08> (2) Diabetes Qualifiers: Diabetes mellitus type: type 2 Diabetes mellitus long term care social worker insulin use: with long term care social worker use Diabetes mellitus complication status: without complication Qualified Code(s): E11.9 - Type 2 diabetes mellitus without complications; Z79.4 - bed bug exterminator (current) use of insulin (3) HTN (hypertension) Qualifiers: Hypertension type: essential hypertension Qualified Code(s): I10 - Essential (primary) hypertension (4) CHF (congestive heart failure) Qualifiers: Heart failure type: diastolic Heart failure chronicity: chronic Qualified Code(s): I50.32 - Chronic diastolic (congestive) heart failure (5) Sleep apnea Qualifiers: Sleep apnea type: unspecified type Qualified Code(s): G47.30 - Sleep apnea, unspecified <Jude Padilla - Last Filed: 07/09/19 16:01> (2) Diabetes Qualifiers: Diabetes mellitus type: type 2 Diabetes mellitus jail insulin use: with long term care social worker use Diabetes mellitus complication status: without complication Qualified Code(s): E11.9 - Type 2 diabetes mellitus without complications; Z79.4 - bed bug exterminator (current) use of insulin (3) HTN (hypertension) Qualifiers: Hypertension type: essential hypertension Qualified Code(s): I10 - Essential (primary) hypertension (4) CHF (congestive heart failure) Qualifiers: Heart failure type: diastolic Heart failure chronicity: chronic Qualified Code(s): I50.32 - Chronic diastolic (congestive) heart failure (5) Sleep apnea Qualifiers: Sleep apnea type: unspecified type Qualified Code(s): G47.30 - Sleep apnea, unspecified
[2019-07-09] MEDS ORDERED: Venlafaxine XR (24 HR) 75 MG CAP.ER.24H PO SCH (09:00)
[2019-07-09] MEDS ORDERED: Vancomycin 0 MG in 0.9 % Sodium Chloride 250 ML IVPB SCH (09:00)
[2019-07-09] MEDS ORDERED: Aspirin Enteric Coated 81 MG Tablet PO SCH (09:00)
[2019-07-09] MEDS ORDERED: Isosorbide MONOnitrate (24 HR) 60 MG TAB.ER.24H PO SCH (09:00)
[2019-07-09] MEDS ORDERED: amLODIPine 5 MG TABLET PO SCH (09:00)
[2019-07-09] MEDS ORDERED: *HR* FentaNYL (PF) 100 MCG/2 ML VIAL ONE ×2 (10:41→13:26)
[2019-07-09] MEDS ORDERED: *HR* Midazolam HCl 2 MG/2 ML VIAL ONE (10:41)
[2019-07-09] MEDS ORDERED: *HR* Propofol 200 MG/20 ML VIAL IVP ONE ×2 (10:41→12:13)
[2019-07-09] MEDS ORDERED: Ondansetron 4 MG/2 ML VIAL ONE (10:45)
[2019-07-09] MEDS ORDERED: Lidocaine -MPF 2% 2 ML VIAL ONE (10:45)
[2019-07-09] MEDS ORDERED: Lidocaine -MPF 4% 5 ML AMPUL ONE (10:45)
[2019-07-09] MEDS ORDERED: Dexamethasone 4 MG/ML VIAL ONE (10:45)
[2019-07-09] MEDS ORDERED: Bupivacaine/EPI 1:200k 0.5%PF 10 ML VIAL ONE (10:51)
--- NOTE | 2019-07-09 11:00 | Infectious Disease Progress No ---
ID Progress Note Date of Encounter: 07/09/19 Time of Encounter: 10:58 - Subjective Subjective: Patient seen and examined. No acute events noted overnight. Patient sitting on the bedside couch with family at bedside. Denies fevers, chills, or rigors. Denies chest pain, shortness of breath, or cough. Denies nausea, vomiting, or diarrhea. Reports a formed stool this morning. Denies abdominal pain or urinary complaints. Denies oral thrush or skin rashes. Denies pain in the shoulder and states he thinks the redness is improved. - Objective CBC & Chem 7: 07/08/19 13:07 07/09/19 15:51 - Exam Vitals: Temp Pulse Resp BP Pulse Ox 97.8 F 89 16 156/87 95 07/09/19 06:20 07/09/19 06:20 07/09/19 06:20 07/09/19 06:20 07/09/19 06:20 Exam: Head: Atraumatic, normal inspection, normocephalic. Eye: EOMI, PERRLA, no scleral icterus noted. ENT: Mucous membranes moist. No odontogenic infection noted. Neck: Normal inspection, no meningismus. Respiratory: Clear to auscultation. No rales, respiratory distress, rhonchi, or wheezes noted. Cardiovascular: Regular rate and rhythm, S1 and S2 audible. No murmurs, rubs, or gallops. GI: Soft, obese, normal bowel sounds. Non-tender. Extremities:No joint swelling, pedal edema noted. Right shoulder surgical incision intact with wound edges well-approximated. No drainage. Scabbing noted to the distal aspect. Erythema noted to the distal aspect of the surgical incision in a round distribution, improved. Warm and tender to touch. Neurological: Alert, oriented 3, no focal deficits. Psychiatric: normal affect, normal mood. Skin: Dry, intact, warm. Normal color. No rashes. - Assessment and Plan (1) Shoulder abscess Current Visit: Yes Status: Acute Location: Right shoulder. Causative organism: Unclear. CT of the right shoulder shows a large air and fluid filled collection overlying the anterior aspect of the right shoulder arthroplasty involving the subcutaneous tissues, anterior shoulder musculature, and surrounding the prosthesis, most consistent with abscess. Likely secondary to right shoulder surgery. No SIRS criteria. ESR 112, CRP 142. Ortho consulted. Planning I & D later today. Currently on Vanc and Zosyn. SNOMED Code(s): 20151478 (2) Status post reverse total arthroplasty of right shoulder Current Visit: Yes Status: Acute SNOMED Code(s): 70888020162516082, 20454663660310030 (3) Diabetes Current Visit: Yes Status: Acute Recommend aggressive glucose monitoring and control to promote wound healing and prevent reinfection. Management per the primary team. Qualifiers: Diabetes mellitus type: type 2 Diabetes mellitus exterminator helper insulin use: with correction use Diabetes mellitus complication status: without complication Qualified Code(s): E11.9 - Type 2 diabetes mellitus without complications; Z 79.4 - termite exterminator helper (current) use of insulin SNOMED Code(s): 44189219 (4) HTN (hypertension) Current Visit: Yes Status: Chronic Qualifiers: Hypertension type: essential hypertension Qualified Code(s): I10 - Essential (primary) hypertension SNOMED Code(s): 51077638 (5) CHF (congestive heart failure) Current Visit: Yes Status: Chronic Qualifiers: Heart failure type: diastolic Heart failure chronicity: chronic Qualified Code(s): I50.32 - Chronic diastolic (congestive) heart failure SNOMED Code(s): 98724694 (6) Sleep apnea Current Visit: Yes Status: Chronic Qualifiers: Sleep apnea type: unspecified type Qualified Code(s): G47.30 - Sleep apnea, unspecified SNOMED Code(s): 86575344 (7) Arthritis Current Visit: Yes Status: Chronic SNOMED Code(s): 7990677 - Recommendations Recommendations: Await intra-op cultures and findings. Please send for aerobic, anaerobic, AFB, and fungal. Wound care and activity per the ortho team. Continue Vancomycin IV. Pharmacy to dose. Goal trough ~15. Continue Zosyn 3.375 grams IV Q8H. Duration of treatment depends on the clinical picture. Monitor renal function and for drug toxicity and dose-adjust antibiotics. Consult Discharge Plan - Plan Referrals: Federico Clark DO [Primary Care Provider] - - Attending Attestation I have personally performed a face to face evaluation on this patient. I have reviewed and agree with the care plan. History and Exam by me shows: Assessment and plan: right shoulder abscess CT right shoulder large air-fluid level collection overlying the anterior aspect of the right shoulder consistent with an abscess causative organism clear status post right glenohumeral joint irrigation and debridement. Intra-Op reveals inflammatory fluid but no jitendra purulence. Intra-Op cultures sent Status post reversal total arthroplasty of the right shoulder 05/27/2019 Status post right open reduction reverse total shoulder for right shoulder traumatic instability 06/12/2019 Status post right reverse total shoulder revision of glenosphere, revision tray with polyexchange 06/26/2019 Morbid obesity Diabetes mellitus type 2 Hypertension CHF Arthritis Recommendations: Continue vancomycin and Zosyn for now Await Intra-Op cultures to finalize Patient will probably need a central line and IV antibiotics for prolonged period of time probably 46 weeks if okay with the orthopedics team. I did explain that to the patient and asked him if he had any preference if he was to go home or if he wants to go to assisted living and he insisted he wants to go home.
[2019-07-09] MEDS ORDERED: Ethanol\\Acetic Acid\\Na Ace\\Ben 1,000 ML IRRIG.SOLN IR ONE (11:43)
[2019-07-09] MEDS ORDERED: Vancomycin 1,000 MG VIAL ONE (11:43)
[2019-07-09] MEDS ORDERED: Ropivacaine/PF 0.5% 30 ML VIAL ONE (11:51)
[2019-07-09] MEDS ORDERED: *HR* HYDROcodone/Acet 10/325 mg TABLET PO PRN (12:13)
[2019-07-09] MEDS ORDERED: Ondansetron 4 MG/2 ML VIAL IVP ONE (12:13)
[2019-07-09] MEDS ORDERED: *HR* Promethazine 25 MG/ML VIAL IVP PRN (12:13)
[2019-07-09] MEDS ORDERED: *HR* Labetalol 20 MG/4 ML SYRINGE IVP PRN (12:13)
[2019-07-09] MEDS: *HR* HYDROmorphone (PF) 1 MG/ML SYRINGE IVP PRN ×2 (14:03→14:12)
[2019-07-09] MEDS ORDERED: Perflutren Lipid Microsphere 1.3 ML in 0.9 % Sodium Chloride 8.7 ML IVP ONE (15:01)
[2019-07-09] MEDS ORDERED: Naloxone 0.4 MG/ML INJ IVP PRN (15:01)
--- NOTE | 2019-07-09 15:08 | Orthopedic Operative Note ---
Date of procedure: 07/09/19 Procedure: Procedure: Right glenohumeral joint irrigation and debridement Preoperative Diagnosis: Right shoulder infection Post operative Diagnosis: Same Surgeon: Jonathan Wyatt MD Complications: None EBL: 50 cc Anesthesia: General with interscalene block Indications: This is a 59 yo M who who has undergone multiple right shoulder surgeries following a traumatic dislocation of a reverse total shoulder arthoplasty. He developed erythema over the incision 2 days ago, and a CT scan demonstrated a fluid collection deep within the shoulder. He was subsequently started on IV antibiotics and admitted for further management. Due to concern for infection, surgical treatment was recommended with open irrigation and debridement of the right glenohumeral joint. The risks and benefits of the procedure were fully explained to the patient. These risks include, but are not limited to, the risk of infection, neurovascular injury, continued pain and stiffness of the shoulder, need for further surgery, continued instability, DVT, PE, loss of limb and loss of life. The patient did understand all of these risks and wishes to proceed. Informed consent was then obtained. Operative procedure: The patient was brought back to the OR suite by the anesthesia staff. The patient was then placed supine on the operating table and all bony prominences were padded. The anesthesiologist then performed successful general anesthetic for the remainder of the case. The head, neck and airway were secured and protected by anesthesia. The bed was elevated about 30 degrees. The right upper extremity was then prepped and draped in the normal sterile orthopedic fashion. Preoperative antibiotics had already been started on the floor. A timeout was performed confirming the correct patient, site and side, procedure to be performed and any allergies. All were in agreement and we did proceed. Previous incision was opened and a standard deltopectoral approach was performed. Inflammatory fluid was encountered and cultures were taken, aerobic, anaerobic, AFB and fungal. No gross purulence was noted. We dissected down through the skin coagulating any bleeders that were encountered. With the deltopectoral interval opened, the reverse total shoulder components were visualized and were stable. Due to the acute nature of the patient's symptoms and the issues the patient had with previous stability the components were retained. Any necrotic tissue was curetted and sharply excised. The wound was then copiously irrigated with several liters of irricept, bactisure and 6 L of NS, the deltopectoral interval was tagged with 0 PDS, and the incision was closed with 2-0 strata fix deep and jovani. Sterile dressing was placed, the patient was placed in a sling and taken to PACU in stable condition. There were no complications during the case. Postoperative plan: Continue IV antibiotics per ID and follow cultures, likely 6 weeks of IV antibiotics. Continue sling and will hold shoulder motion. Will monitor exam in case of need for repeat irrigation and debridement. Was there an night assistant present: No Estimated blood loss (cc): 50
[2019-07-09 17:16] LABS: BUN/Creatinine Ratio 16 (6-26); Blood Urea Nitrogen 14 mg/dL (8-23); Calcium 8.5 mg/dL (8.6-10.3); Carbon Dioxide 29 mEq/L (23-29); Chloride 103 mEq/L (98-107); Glucose 258 mg/dL (70-105); Osmolality,Calculated 293 (280-300); Potassium 4.5 mEq/L (3.5-5.1); Sodium 137 mEq/L (136-145); eGFR For African Americans > 60 (> 60); eGFR For Non-African Americans > 60 (> 60)
[2019-07-09] MEDS: Metoprolol XL (24 HR) Succ 50 MG TAB.ER.24H PO SCH (20:31)
[2019-07-09] MEDS: Insulin DETEMIR 100 UNIT/ML X5UNITS SQ SCH (20:34)
[2019-07-09] MEDS: Acetaminophen 325 MG TABLET PO PRN (22:02)
[2019-07-10 05:52] LABS: Basophils % 0.5 %; Eosinophils % 0.3 %; Hematocrit 32.6 % (37.5-50.1); Immature Granulocytes % 0.6 % (0-4); Lymphocytes # 1.4 K/mcL (0.6-4.6); Lymphocytes % 17.7 %; Mean Corpuscular HGB Conc 30.4 g/dL (31.6-35.5); Mean Corpuscular Hemoglobin 26.8 pg (28.0-33.3); Mean Platelet Volume 9.5 fL (9.4-12.4); Monocytes # 0.5 K/mcL (0.0-1.3); Monocytes % 6.8 %; Neutrophils # 5.9 K/mcL (1.6-8.9); Platelet Count 353 K/mcL (140-400); Red Blood Count 3.69 M/mcL (4.19-5.50); Red Cell Distribution Width 13.3 % (11.5-14.5); Segmented Neutrophils % 74.1 %
[2019-07-10] MEDS: *HR* Heparin 5,000 UNIT/ML VIAL SQ SCH ×3 (05:52→21:41)
[2019-07-10] MEDS: Acetaminophen 325 MG TABLET PO PRN ×3 (05:53→21:38)
[2019-07-10 05:54] LABS: Hemoglobin 9.9 g/dL (12.9-16.9); Mean Corpuscular Volume 88.3 fL (83.0-100.0)
[2019-07-10 06:11] LABS: BUN/Creatinine Ratio 14 (6-26); Blood Urea Nitrogen 20 mg/dL (8-23); Calcium 8.7 mg/dL (8.6-10.3); Carbon Dioxide 26 mEq/L (23-29); Chloride 100 mEq/L (98-107); Glucose 255 mg/dL (70-105); Osmolality,Calculated 297 (280-300); Potassium 4.3 mEq/L (3.5-5.1); Sodium 138 mEq/L (136-145); eGFR For African Americans > 60 (> 60); eGFR For Non-African Americans 53 (> 60)
[2019-07-10] MEDS: Gabapentin 400 MG CAPSULE PO SCH ×3 (08:22→21:39)
[2019-07-10] MEDS: Venlafaxine XR (24 HR) 75 MG CAP.ER.24H PO SCH (08:22)
[2019-07-10] MEDS: Aspirin Enteric Coated 81 MG Tablet PO SCH (08:22)
[2019-07-10] MEDS: amLODIPine 5 MG TABLET PO SCH (08:23)
[2019-07-10] MEDS: Piperacillin/Tazobactam 3.375 GM in 0.9 % Sodium Chloride Mini Bag 100 ML IVPB SCH ×2 (08:24→17:28)
[2019-07-10] MEDS: Isosorbide MONOnitrate (24 HR) 60 MG TAB.ER.24H PO SCH (08:24)
[2019-07-10] MEDS: Insulin LISPRO 300 UNITS/3 ML VIAL SQ SCH ×7 (08:26→21:40)
--- NOTE | 2019-07-10 08:48 | Internal Med Progress Note ---
<Tariq Whyte - Last Filed: 07/10/19 13:46> Hospitalist Progress Note - Encounter Date of Encounter: 07/10/19 Time of Encounter: 09:45 - Subjective Interval History: Patient underwent surgery yesterday with the right glenohumeral joint irrigation and debridement. Feels better this morning. Pain is better controlled. Complaints of diarrhea. Has had 2 episodes of loose stools this morning. No chest pain or palpitations. Continues to have urinary hesitancy. - Exam Vitals: Temp Pulse Resp BP Pulse Ox 97.9 F 72 16 115/58 94 07/10/19 12:22 07/10/19 12:22 07/10/19 12:22 07/10/19 12:22 07/10/19 12:22 Exam: General: Patient is alert, mild distress, oriented x 3 Respiratory: Good respiratory effort. Normal breath sounds. No wheezing or crackles. Cardiovascular: Regular rate and rhythm. s1 and s2 normal No clicks, rubs, gallops, or murmurs. No pedal edema Abdomen: Abdomen is soft, nontender. Bowel sounds are present Musculoskeletal: Right shoulder in sling. Spontaneously moving other extremities; right shoulder surgical incision bandaged with surrounding erythema. Skin: warm, dry, intact. Neuro: Alert oriented x 3 normal cranial nerves, no focal deficits - Assessment and Plan (1) Shoulder abscess Current Visit: Yes Status: Acute (2) Diabetes Current Visit: Yes Status: Acute (3) HTN (hypertension) Current Visit: Yes Status: Chronic (4) CHF (congestive heart failure) Current Visit: Yes Status: Chronic (5) Sleep apnea Current Visit: Yes Status: Chronic (6) Arthritis Current Visit: Yes Status: Chronic (7) DVT prophylaxis Current Visit: Yes Status: Acute - Time Spent with Patient Total time spent is greater than 50% in coordination of care (as documented) at patient's floor/unit and/or counseling patient: Internal Medicine: Result - Labs CBC & Chem 7: 07/10/19 04:47 07/10/19 04:47 Labs: Short CBC 07/10/19 Range/Units 04:47 WBC 8.0 (4.3-11.1) K/mcL Hgb 9.9 L D (12.9-16.9) g/dL Hct 32.6 L (37.5-50.1) % Plt Count 353 (140-400) K/mcL Neutrophils # 5.9 (1.6-8.9) K/mcL BMP 07/09/19 07/10/19 15:51 04:47 Sodium 137 138 Potassium 4.5 4.3 Chloride 103 100 Carbon Dioxide 29 26 BUN 14 20 Creatinine 0.89 1.38 H Glucose 258 H 255 H Calcium 8.5 L 8.7 - Impressions Impressions Shoulder X-Ray 07/09/19 14:36 IMPRESSION: Previously noted soft tissue foci of gas have resolved. D/ / Josse Abbasi / Josse Abbasi Interpreting Provider: Josse Abbasi Consult Discharge Plan - Plan Referrals: Federico Clark DO [Primary Care Provider] - - Attending Attestation I saw evaluated and examined this patient and reviewed objective data including labs and my medical decision-making was reviewed with the Medical Student. I agree with the documented findings, disposition and treatment plan as described except to any changes set forth below. We independently had [id number] contact with the patient. 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 Awaiting wound cultures. Continue current antibiotics. Acute kidney injury: Creatinine 1.38 today. Will gently hydrate. Diuretics have been held. Monitor renal function closely. Patient is also receiving vanc omycin. BPH: Patient having symptoms of urinary hesitancy. We will place him on Flomax. Chronic diastolic congestive heart failure: Not in acute exacerbation. Continue home medication But holding Lasix due to acute kidney injury Diabetes mellitus type 2: Blood sugars were elevated last night and this morning but have improved since then. Will continue current insulin regimen and adjust according to blood sugars. Coronary artery disease: Continue aspirin, statin and beta felix. Essential hypertension: Blood pressure is fairly controlled. Continue current medications. DVT prophylaxis with subcutaneous heparin Moderate risk for complications <Jude Padilla - Last Filed: 07/10/19 15:31> Hospitalist Progress Note - Encounter Date of Encounter: 07/10/19 - Subjective Interval History: Patient reports no acute events overnight. Reports pain is well controlled. Has had 2 bouts of diarrhea this morning that he has described as loose. Also estiven nuing to have trouble urinating due to hesitancy. Denies any chest pain, cough, wheeze, SOB, fever, nausea, or vomiting. - Exam Vitals: Temp Pulse Resp BP Pulse Ox 98.1 F 72 16 127/76 96 07/10/19 07:07 07/10/19 07:07 07/10/19 07:07 07/10/19 07:07 07/10/19 07:07 Exam: Gen: AOx3 in no acute distress Eyes: SINDHU EOMI with no conjunctivitis present Throat: Moist mucous membranes with no pharyngeal erythema or tonsilar exudate CV: RRR with no murmur Lungs: CTA in all lung pascual with no wheeze or crackles . GI: soft, non-tender. Morbid obesity. No organomegally or masses palpated Ext: DP 2/4. No LE edema present. Derm: 10 cm surgical scar on anterior right shoulder with surrounding erythema. Borders approximated with no exudate Neuro: CN II-XII intact with no focal deficit - Assessment and Plan (1) Shoulder abscess Current Visit: Yes Status: Acute Assessment and Plan: -Patient presented to Orthopedics office with fevers, chills, redness and swelling in right shoulder -3 previous surgeries in 2 months on R shoulder most recent on 06/26 for total shoulder revision -Worsening of symptoms despite outpatient antibiotics post op - Did not meet SIRS criteria - CT scan 07/08 suspicious for abscess in right shoulder involving arthroplasty, subcuaneous tissue, and musculature - ID Consulted recommending vancomycin IV, and zosyn 3.375 g IV Q8 - Orhto consulted performing shoulder irrigation and debridement today with plan for aerobic, anaerobic, fungal, and AFB cultures intraop. Inflammatory fluid seen, with no gross purulence visualized - Echo 07/08 LVEF 65-70%,no Pulmonary HTN, no segmental dysfunctional, No valvular dysfunction - Creatinine 1.38 today up from 0.89 on 07/09 Plan - intraoperative cultures pending -Wound care and shoulder stabilization per ortho recommendations - Cont Vancomycin and Zosyn per ID recommendations (2) Diabetes Current Visit: Yes Status: Acute Assessment and Plan: - Chronic DM II - POC 359 today -Receiving 15 units levimir and Medium sliding scale insulin Plan: -Cont current regiment (3) HTN (hypertension) Current Visit: Yes Status: Chronic Assessment and Plan: - Chronic HTN - BP stable Plan - Cont home medications (4) CHF (congestive heart failure) Current Visit: Yes Status: Chronic Assessment and Plan: - chronic of unknown etiology - Takes lasix at home - Echo on 07/08 showed LVEF 65-70%, no pulmonary HTN, no segmental dysfunction or valvular dysfunction Plan: -Cont to hold home lasix (5) Sleep apnea Current Visit: Yes Status: Chronic Assessment and Plan: Cont CPAP DVT Prophylaxis: Sub cutaneous Heparin - Time Spent with Patient Total time spent is greater than 50% in coordination of care (as documented) at patient's floor/unit and/or counseling patient: Internal Medicine: Result - Labs CBC & Chem 7: 07/10/19 04:47 07/10/19 04:47 Labs: Short CBC 07/10/19 Range/Units 04:47 WBC 8.0 (4.3-11.1) K/mcL Hgb 9.9 L D (12.9-16.9) g/dL Hct 32.6 L (37.5-50.1) % Plt Count 353 (140-400) K/mcL Neutrophils # 5.9 (1.6-8.9) K/mcL BMP 07/09/19 07/10/19 15:51 04:47 Sodium 137 138 Potassium 4.5 4.3 Chloride 103 100 Carbon Dioxide 29 26 BUN 14 20 Creatinine 0.89 1.38 H Glucose 258 H 255 H Calcium 8.5 L 8.7 - Impressions Impressions Echocardiogram 07/08/19 21:26 Impressions: No pulmonary hypertension. LVEF 65-70%. No segmental dysfunction. No significant valvular dysfunction. Left Ventricular Wall Motion: Rest Echo Findings The apex, apical inferior, mid inferior, basal inferior, apical anterior, mid anterior, basal anterior, apical septal, mid inferior septal, basal inferior septal, apical lateral, mid anterior lateral, basal anterior lateral, mid anterior septal, mid inferior lateral, basal anterior septal and basal inferior lateral chen were hyperkinetic. Findings: Study Quality * Technically sub-optimal due to body habitus. ECG Findings * Sinus tachycardia. Aorta * Normally sized aortic root in portion visualized Tricuspid Valve * Trace tricuspid regurgitation. * No tricuspid stenosis. * Estimated RVSP is 24 mmHg. * Estimated RA pressure is 0-5 mmHg. * No pulmonary hypertension. * Tricuspid valve not well visualized. Pulmonic Valve * Pulmonic valve not well visualized. * No pulmonic stenosis. * No pulmonic regurgitation. Aortic Valve * Aortic valve not well visualized. * No aortic regurgitation. * No aortic stenosis. IVC * Normal IVC dimensions and inspiratory collapse. Left Ventricle * LVEF 65-70%. * No segmental dysfunction. * Mild left ventricular diastolic dysfunction. Shoulder X-Ray 07/09/19 14:36 IMPRESSION: Previously noted soft tissue foci of gas have resolved. D/ / Josse Abbasi / Josse Abbasi Interpreting Provider: Josse Abbasi <Tariq Whyte - Last Filed: 07/10/19 13:46> (2) Diabetes Qualifiers: Diabetes mellitus type: type 2 Diabetes mellitus intermodal owner operator truck driver insulin use: with intermodal owner operator truck driver use Diabetes mellitus complication status: without complication Qualified Code(s): E11.9 - Type 2 diabetes mellitus without complications; Z79.4 - intermodal owner operator truck driver (current) use of insulin (3) HTN (hypertension) Qualifiers: Hypertension type: essential hypertension Qualified Code(s): I10 - Essential (primary) hypertension (4) CHF (congestive heart failure) Qualifiers: Heart failure type: diastolic Heart failure chronicity: chronic Qualified Code(s): I50.32 - Chronic diastolic (congestive) heart failure (5) Sleep apnea Qualifiers: Sleep apnea type: unspecified type Qualified Code(s): G47.30 - Sleep apnea, unspecified <Jude Padilla - Last Filed: 07/10/19 15:31> (2) Diabetes Qualifiers: Diabetes mellitus type: type 2 Diabetes mellitus intermodal owner operator truck driver insulin use: with intermodal owner operator truck driver use Diabetes mellitus complication status: without complication Qualified Code(s): E11.9 - Type 2 diabetes mellitus without complications; Z79.4 - assisted (current) use of insulin (3) HTN (hypertension) Qualifiers: Hypertension type: essential hypertension Qualified Code(s): I10 - Essential (primary) hypertension (4) CHF (congestive heart failure) Qualifiers: Heart failure type: diastolic Heart failure chronicity: chronic Qualified Code(s): I50.32 - Chronic diastolic (congestive) heart failure (5) Sleep apnea Qualifiers: Sleep apnea type: unspecified type Qualified Code(s): G47.30 - Sleep apnea, unspecified
[2019-07-10] MEDS ORDERED: Aminoglycoside Consult 1 EACH MC ONE (10:38)
[2019-07-10] MEDS ORDERED: 0.9 % Sodium Chloride 1,000 ML IVC SCH (11:30)
[2019-07-10 11:37] LABS: C-Reactive Protein 125 mg/L (Less than 10)
--- NOTE | 2019-07-10 12:07 | Infectious Disease Progress No ---
ID Progress Note Date of Encounter: 07/10/19 Time of Encounter: 12:05 - Subjective Subjective: Patient seen and examined. No acute events noted overnight. Patient sitting up in the bedside chair with family at bedside. Denies fevers, chills, or rigors. Denies chest pain, shortness of breath, or cough. Denies nausea, vomiting, or constipation. States he has had two watery stools so far this morning. Reported formed stool yesterday x 1. Denies abdominal pain or urinary complaints. Denies oral thrush or skin rashes. Denies pain in the shoulder and states he thinks the redness is improved. - Objective CBC & Chem 7: 07/10/19 04:47 07/10/19 04:47 - Exam Vitals: Temp Pulse Resp BP Pulse Ox 98.1 F 72 16 127/76 96 07/10/19 07:07 07/10/19 07:07 07/10/19 07:07 07/10/19 07:07 07/10/19 07:07 Exam: Head: Atraumatic, normal inspection, normocephalic. Eye: EOMI, PERRLA, no scleral icterus noted. ENT: Mucous membranes moist. No odontogenic infection noted. Neck: Normal inspection, no meningismus. Respiratory: Clear to auscultation. No rales, respiratory distress, rhonchi, or wheezes noted. Cardiovascular: Regular rate and rhythm, S1 and S2 audible. No murmurs, rubs, or gallops. GI: Soft, obese, normal bowel sounds. Non-tender. Extremities:No joint swelling, pedal edema noted. Right shoulder surgical incision with dressing intact. Small amount of shadow drainage noted. Erythema improved. Tenderness noted with palpation of the axillary area. ROM not assessed. Neurological: Alert, oriented 3, no focal deficits. Psychiatric: normal affect, normal mood. Skin: Dry, intact, warm. Normal color. No rashes. - Assessment and Plan (1) Shoulder abscess Current Visit: Yes Status: Acute Location: Right shoulder. Causative organism: Unclear. CT of the right shoulder shows a large air and fluid filled collection overlying the anterior aspect of the right shoulder arthroplasty involving the subcutaneous tissues, anterior shoulder musculature, and surrounding the prosthesis, most consistent with abscess. Likely secondary to right shoulder surgery. No SIRS criteria. ESR 112, CRP 142. Ortho consulted. Status post tight glenohumeral joint irrigation and debridement 07/09/[address] Wyatt. Operative note reviewed. Intra-op findings discussed with Dr. Wyatt. Intra-op cultures are pending. Currently on Vanc and Zosyn. SNOMED Code(s): 66895880 (2) Status post reverse total arthroplasty of right shoulder Current Visit: Yes Status: Acute SNOMED Code(s): 99326256515529542, 88764502500741286 (3) Diabetes Current Visit: Yes Status: Acute Recommend aggressive glucose monitoring and control to promote wound healing and prevent reinfection. Management per the primary team. Qualifiers: Diabetes mellitus type: type 2 Diabetes mellitus jail insulin use: with jail use Diabetes mellitus complication status: without complication Qualified Code(s): E11.9 - Type 2 diabetes mellitus without complications; Z79.4 - intermediate designer (current) use of insulin SNOMED Code(s): 02372328 (4) HTN (hypertension) Current Visit: Yes Status: Chronic Qualifiers: Hypertension type: essential hypertension Qualified Code(s): I10 - Essential (primary) hypertension SNOMED Code(s): 93073840 (5) CHF (congestive heart failure) Current Visit: Yes Status: Chronic Qualifiers: Heart failure type: diastolic Heart failure chronicity: chronic Qualified Code(s): I50.32 - Chronic diastolic (congestive) heart failure SNOMED Code(s): 22179742 (6) Sleep apnea Current Visit: Yes Status: Chronic Qualifiers: Sleep apnea type: unspecified type Qualified Code(s): G47.30 - Sleep apnea, unspecified SNOMED Code(s): 13820199 (7) Arthritis Current Visit: Yes Status: Chronic SNOMED Code(s): 6885180 (8) Diarrhea Current Visit: Yes Status: Acute HAs been having intermittent diarrhea since before admission. Yesterday he had 1 formed stool, but states he has had three watery bowel mov ements today. Discussed with nursing and advised to send for C. diff if the patient's stools are watery and he has 4 or more in a 24 hour period. Probiotics BID. Qualifiers: Diarrhea type: unspecified type Qualified Code(s): R19.7 - Diarrhea, u nspecified SNOMED Code(s): 34927691 - Recommendations Recommendations: Send stool for C. diff if the patient meets testing criteria (4 or more watery stools per 24 hour period). Await intra-op cultures. Wound care and activity per the ortho team. Continue Vancomycin IV. Pharmacy to dose. Goal trough ~15. Continue Zosyn 3.375 grams IV Q8H. Duration of treatment depends on the clinical picture. Monitor renal function and for drug toxicity and dose-adjust antibiotics. Consult Discharge Plan - Plan Referrals: Federico Clark DO [Primary Care Provider] -
[2019-07-10] MEDS: Lactobacillus 1 EACH CAP.SPRINK PO SCH (12:22)
--- NOTE | 2019-07-10 12:45 | Orthopedics Progress Note ---
Date of Encounter: 07/10/19 Time of Encounter: 12:43 Subjective Interval history: No overnight issues. Minimal shoulder pain. Denies fevers or chills. Right shoulder exam has erythema over the anterior aspect of the shoulder in the area of the incision which is improving. Small amount of drainage on dressing, no purulence. He is neurovascularly intact over ax/m/r/u. Ctx: NGTD POD#1 s/p I&D R shoulder Continue IV antibiotics per ID and follow cultures, likely 6 weeks of IV antibiotics. Appreciate recs Brace at all times Remove for hygiene only Objective Vital signs: Vital Signs Temp Pulse Resp BP Pulse Ox 07/10/19 12:22 97.9 F 72 16 115/58 94 07/10/19 07:07 98.1 F 72 16 127/76 96 07/10/19 03:49 97.8 F 107 17 119/68 96 07/09/19 23:10 98.0 F 96 18 98/60 95 07/09/19 18:55 98.1 F 102 16 120/77 97 07/09/19 16:00 102 18 102/57 93 07/09/19 15:41 98 18 120/60 98 07/09/19 15:25 98 18 114/73 98 07/09/19 15:06 100 18 121/69 93 07/09/19 15:02 98.3 F 99 18 116/67 93 07/09/19 14:29 96 18 141/73 94 07/09/19 14:19 97 18 138/73 94 07/09/19 14:09 101 20 120/82 95 07/09/19 13:59 101 20 142/87 95 07/09/19 13:49 97.6 F 105 22 146/80 91 Intake and Output 07/09/19 07/10/19 07/10/19 23:59 07:59 15:59 Intake Total 100 / 200 100 / 340 240 / 340 Balance 100 / 150 100 / 340 240 / 340 Intake: IV Fluids 100 / 200 100 / 100 Zosyn 3.375 GM In 0.9 % Sodium 100 / 100 100 / 100 Chloride (Mini-Bag +) 100 ML @ 25 mls/hr IVPB Q8HR [facility] Rx#: [id number] Oral 240 / 240 Other: Meal Breakfast Percent of Meal Consumed 100% # Voids 1 Weight 148.5 kg Blood Glucose* 376 359 110 Patient Weight 07/10/19 23:59 Weight 148.5 kg - Labs CBC & BMP: 07/10/19 04:47 07/10/19 04:47 Labs: Abnormal lab results RBC 3.69 M/mcL (4.19-5.50) L 07/10/19 04:47 Hgb 9.9 g/dL (12.9-16.9) L D 07/10/19 04:47 Hct 32.6 % (37.5-50.1) L 07/10/19 04:47 MCV 82.2 fL (83.0-100.0) L 07/08/19 13:07 MCH 26.8 pg (28.0-33.3) L 07/10/19 04:47 MCHC 30.4 g/dL (31.6-35.5) L 07/10/19 04:47 Plt Count 436 K/mcL (140-400) H 07/08/19 13:07 ESR 93 mm/hr (0-10) H 07/10/19 04:47 Carbon Dioxide 31 mEq/L (23-29) H 07/08/19 13:07 Creatinine 1.38 mg/dL (0.70-1.30) H 07/10/19 04:47 Est GFR (Non-Af Amer) 53 (> 60) L 07/10/19 04:47 Glucose 255 mg/dL (70-105) H 07/10/19 04:47 POC Glucose 270 mg/dL (70-99) H 07/09/19 16:32 Calcium 8.5 mg/dL (8.6-10.3) L 07/09/19 15:51 C-Reactive Protein 125 mg/L (Less than 10) H 07/10/19 04:47 Consult Discharge Plan - Plan Referrals: Federico Clark DO [Primary Care Provider] -
[2019-07-10] MEDS: Insulin DETEMIR 100 UNIT/ML X5UNITS SQ SCH (21:39)
[2019-07-10] MEDS: Metoprolol XL (24 HR) Succ 50 MG TAB.ER.24H PO SCH (21:39)
[2019-07-11] MEDS: Piperacillin/Tazobactam 3.375 GM in 0.9 % Sodium Chloride Mini Bag 100 ML IVPB SCH ×3 (00:07→16:00)
[2019-07-11 04:43] LABS: Basophils # 0.1 K/mcL (0.0-0.2); Basophils % 0.9 %; Eosinophils # 0.2 K/mcL (0.0-0.6); Eosinophils % 3.4 %; Hemoglobin 9.4 g/dL (12.9-16.9); Immature Granulocytes % 0.8 % (0-4); Lymphocytes # 1.8 K/mcL (0.6-4.6); Mean Corpuscular HGB Conc 30.3 g/dL (31.6-35.5); Mean Corpuscular Hemoglobin 26.7 pg (28.0-33.3); Mean Corpuscular Volume 88.1 fL (83.0-100.0); Mean Platelet Volume 9.1 fL (9.4-12.4); Monocytes # 0.5 K/mcL (0.0-1.3); Monocytes % 8.7 %; Neutrophils # 2.8 K/mcL (1.6-8.9); Platelet Count 313 K/mcL (140-400); Red Blood Count 3.52 M/mcL (4.19-5.50); Red Cell Distribution Width 13.5 % (11.5-14.5); Segmented Neutrophils % 52.2 %; White Blood Count 5.3 K/mcL (4.3-11.1)
[2019-07-11 04:58] LABS: BUN/Creatinine Ratio 16 (6-26); Blood Urea Nitrogen 19 mg/dL (8-23); Calcium 8.3 mg/dL (8.6-10.3); Carbon Dioxide 30 mEq/L (23-29); Chloride 104 mEq/L (98-107); Glucose 254 mg/dL (70-105); Osmolality,Calculated 303 (280-300); Sodium 141 mEq/L (136-145); eGFR For African Americans > 60 (> 60); eGFR For Non-African Americans > 60 (> 60)
[2019-07-11] MEDS: *HR* Heparin 5,000 UNIT/ML VIAL SQ SCH ×3 (06:07→21:34)
[2019-07-11] MEDS: Gabapentin 400 MG CAPSULE PO SCH ×3 (08:09→21:34)
[2019-07-11] MEDS: Venlafaxine XR (24 HR) 75 MG CAP.ER.24H PO SCH (08:10)
[2019-07-11] MEDS: Isosorbide MONOnitrate (24 HR) 60 MG TAB.ER.24H PO SCH (08:10)
[2019-07-11] MEDS: Aspirin Enteric Coated 81 MG Tablet PO SCH (08:10)
[2019-07-11] MEDS: Lactobacillus 1 EACH CAP.SPRINK PO SCH (08:10)
[2019-07-11] MEDS: amLODIPine 5 MG TABLET PO SCH (08:11)
[2019-07-11] MEDS: Insulin LISPRO 300 UNITS/3 ML VIAL SQ SCH ×6 (08:23→21:35)
--- NOTE | 2019-07-11 09:39 | Internal Med Progress Note ---
<Tariq Whyte - Last Filed: 07/11/19 13:23> Hospitalist Progress Note - Encounter Date of Encounter: 07/11/19 Time of Encounter: 09:40 - Exam Vitals: Temp Pulse Resp BP Pulse Ox 100.0 F H 94 18 139/70 96 07/11/19 11:22 07/11/19 11:22 07/11/19 11:22 07/11/19 11:22 07/11/19 11:22 - Assessment and Plan (1) Shoulder abscess Current Visit: Yes Status: Acute (2) Diabetes Current Visit: Yes Status: Acute (3) HTN (hypertension) Current Visit: Yes Status: Chronic (4) CHF (congestive heart failure) Current Visit: Yes Status: Chronic (5) Sleep apnea Current Visit: Yes Status: Chronic (6) Arthritis Current Visit: Yes Status: Chronic (7) DVT prophylaxis Current Visit: Yes Status: Acute - Time Spent with Patient Total time spent is greater than 50% in coordination of care (as documented) at patient's floor/unit and/or counseling patient: Internal Medicine: Result - Labs CBC & Chem 7: 07/11/19 04:10 07/11/19 04:10 Labs: Short CBC 07/11/19 Range/Units 04:10 WBC 5.3 (4.3-11.1) K/mcL Hgb 9.4 L (12.9-16.9) g/dL Hct 31.0 L (37.5-50.1) % Plt Count 313 (140-400) K/mcL Neutrophils # 2.8 (1.6-8.9) K/mcL BMP 07/11/19 04:10 Sodium 141 Potassium 4.0 Chloride 104 Carbon Dioxide 30 H BUN 19 Creatinine 1.20 Glucose 254 H Calcium 8.3 L Consult Discharge Plan - Plan Referrals: Federico Clark DO [Primary Care Provider] - - Attending Attestation I saw evaluated and examined this patient and reviewed objective data including labs and my medical decision-making was reviewed with the Resident Physician, Forest Ge. I agree with the documented findings, disposition and treatment plan as described except to any changes set forth below. We independently had [id number] contact with the patient. Patient sitting up in chair. Comfortable. Surgical dressing on right shoulder with seepage wound VAC present. Patient reports that pain has improved in right shoulder. Erythema also appears to be improving. No fever reported overnight. Diarrhea improving. Wound culture growing Serratia. Will stop vancomycin. Continue Zosyn. Continue supportive care. Blood sugars are elevated. Will add long-acting insulin morning in addition to nighttime coverage. Continue sliding scale coverage. <Forest Ge - Last Filed: 07/11/19 18:07> Hospitalist Progress Note - Encounter Date of Encounter: 07/11/19 - Subjective Interval History: Pt seen and examined at bedside. Reports he feels better today and feels his arm appears less erythematous. No new or acute complaints. Denies fever, chills, chest pain, shortness of breath, abdominal pain, nausea, vomiting, diarrhea, or urinary symptoms - Exam Vitals: Temp Pulse Resp BP Pulse Ox 98.9 F 88 19 172/88 94 07/11/19 07:13 07/11/19 07:13 07/11/19 07:13 07/11/19 07:13 07/11/19 07:13 Exam: Constitutional: Obese male in no acute distress Head: Normocephalic, atraumatic Eyes: PERRL, EOMI, conjunctiva pink, sclera anicteric Neck: Supple, trachea midline Lungs: Clear to auscultation bilaterally. Nonlabored breathing. No wheezes, rales, or rhonchi noted. Cardiac: RRR. +s1 +s2 No murmurs, clicks, or rubs noted. GI: Abdomen soft, nontender, obese Extremities: Warm, radial pulses palpable and symmetrical. No cyanosis, pedal edema, or calf tenderness. Right arm in sling. Neuro: Alert and oriented 3. No focal deficits. Normal speech. Skin: Warm, dry, and intact. Erythema surrounding right shoulder surgical incision improved. Wound vac in place - Assessment and Plan (1) Shoulder abscess Current Visit: Yes Status: Acute Assessment and Plan: -Patient presented to Orthopedics office with fevers, chills, redness and swelling in right shoulder -3 previous surgeries in 2 months on R shoulder most recent on 06/26 for total shoulder revision -Worsening of symptoms despite outpatient antibiotics post op - Did not meet SIRS criteria - CT scan 07/08 suspicious for abscess in right shoulder involving arthroplasty, subcuaneous tissue, and musculature - ID Consulted recommending vancomycin IV, and zosyn 3.375 g IV Q8 - Orhto consulted performing shoulder irrigation and debridement on 07/09. Inflammatory fluid seen, with no gross purulence visualized - Echo 07/08 LVEF 65-70%,no Pulmonary HTN, no segmental dysfunctional, No valvular dysfunction Plan - intraoperative cultures pending - preliminary growing Serratia marcescens - Wound care and shoulder stabilization per ortho recommendations - Discontinue Vanc based on preliminary wound cultures. Will continue Zosyn (2) Diabetes Current Visit: Yes Status: Acute Assessment and Plan: - Chronic DM II - Continues to have hyperglycemia Increase to 25u Levemir this evening, transition to BID dosing tomorrow High dose SSI and accuchecks Diabetic diet (3) HTN (hypertension) Current Visit: Yes Status: Chronic Assessment and Plan: - Chronic HTN - BP stable Plan - Cont home medications (4) CHF (congestive heart failure) Current Visit: Yes Status: Chronic Assessment and Plan: - Not in acute exacerbation - Takes lasix at home - Echo on 07/08 showed LVEF 65-70%, no pulmonary HTN, no segmental dysfunction or valvular dysfunction Plan: -Cont to hold home lasix (5) Sleep apnea Current Visit: Yes Status: Chronic Assessment and Plan: We will keep patient on CPAP at night DVT Prophylaxis: SQ Heparin - Time Spent with Patient Total time spent is greater than 50% in coordination of care (as documented) at patient's floor/unit and/or counseling patient: Internal Medicine: Result - Labs CBC & Chem 7: 07/11/19 04:10 07/11/19 04:10 Labs: Short CBC 07/11/19 Range/Units 04:10 WBC 5.3 (4.3-11.1) K/mcL Hgb 9.4 L (12.9-16.9) g/dL Hct 31.0 L (37.5-50.1) % Plt Count 313 (140-400) K/mcL Neutrophils # 2.8 (1.6-8.9) K/mcL BMP 07/11/19 04:10 Sodium 141 Potassium 4.0 Chloride 104 Carbon Dioxide 30 H BUN 19 Creatinine 1.20 Glucose 254 H Calcium 8.3 L <Radha Whyteadilia - Last Filed: 07/11/19 13:23> (2) Diabetes Qualifiers: Diabetes mellitus type: type 2 Diabetes mellitus terminal press operator insulin use: with senior living use Diabetes mellitus complication status: without complication Qu alified Code(s): E11.9 - Type 2 diabetes mellitus without complications; Z79.4 - middle or intermediate school principal (current) use of insulin (3) HTN (hypertension) Qualifiers: Hypertension type: essential hypertension Qualified Code(s): I10 - Essential (primary) hypertension (4) CHF (congestive heart failure) Qualifiers: Heart failure type: diastolic Heart failure chronicity: chronic Qualified Code(s): I50.32 - Chronic diastolic (congestive) heart failure (5) Sleep apnea Qualifiers: Sleep apnea type: unspecified type Qualified Code(s): G47.30 - Sleep apnea, unspecified <Forest Ge - Last Filed: 07/11/19 18:07> (2) Diabetes Qualifiers: Diabetes mellitus type: type 2 Diabetes mellitus terminal press operator insulin use: with terminal press operator use Diabetes mellitus complication status: without complication Qualified Code(s): E11.9 - Type 2 diabetes mellitus without complications; Z79.4 - senior living (current) use of insulin (3) HTN (hypertension) Qualifiers: Hypertension type: essential hypertension Qualified Code(s): I10 - Essential (primary) hypertension (4) CHF (congestive heart failure) Qualifiers: Heart failure type: diastolic Heart failure chronicity: chronic Qualified Code(s): I50.32 - Chronic diastolic (congestive) heart failure (5) Sleep apnea Qualifiers: Sleep apnea type: unspecified type Qualified Code(s): G47.30 - Sleep apnea, unspecified
--- NOTE | 2019-07-11 13:44 | Orthopedics Progress Note ---
Date of Encounter: 07/11/19 Time of Encounter: 13:42 Subjective Interval history: No overnight issues. Shoulder feeling better. Denies fevers or chills. Right shoulder exam with improving erythema. Minimal amount of drainage on dressing, no purulence. He is neurovascularly intact over ax/m/r/u. Ctx: Serratia POD#2 s/p I&D R shoulder Continue IV antibiotics per ID, likely 6 weeks of IV antibiotics. Appreciate recs Brace at all times Remove for hygiene only Continue vanessa dressing Objective Vital signs: Vital Signs Temp Pulse Resp BP Pulse Ox 07/11/19 11:22 100.0 F H 94 18 139/70 96 07/11/19 07:13 98.9 F 88 19 172/88 94 07/11/19 00:24 97.5 F L 77 20 113/72 94 07/10/19 18:51 97.8 F 79 20 131/82 93 07/10/19 17:19 98.1 F 81 17 121/69 94 Intake and Output 07/10/19 07/11/19 07/11/19 23:59 07:59 15:59 Intake Total 1430 / 1810 100 / 100 Output Total 0 / 0 0 / 0 Balance 1430 / 1810 100 / 100 Intake: IV Fluids 950 / 1090 100 / 100 Zosyn 3.375 GM In 0.9 % Sodium 200 / 340 100 / 100 Chloride (Mini-Bag +) 100 ML @ 25 mls/hr IVPB Q8HR [facility] Rx#: [id number] Vancocin 1,500 MG In 0.9 % 250 / 250 Sodium Chloride 250 ML @ 166.67 mls/hr IVPB Q24H [facility] Rx#: [id number] Vancocin 2,000 MG In 0.9 % 500 / 500 Sodium Chloride 500 ML @ 250 mls/hr IVPB Q12H [facility] Rx#: [id number] Oral 480 / 720 0 / 0 Output: Urine 0 / 0 0 / 0 Other: # Voids 1 Weight 148.6 kg Blood Glucose* 176 237 296 Patient Weight 07/11/19 23:59 Weight 148.6 kg - Labs CBC & BMP: 07/11/19 04:10 07/11/19 04:10 Labs: Abnormal lab results RBC 3.52 M/mcL (4.19-5.50) L 07/11/19 04:10 Hgb 9.4 g/dL (12.9-16.9) L 07/11/19 04:10 Hct 31.0 % (37.5-50.1) L 07/11/19 04:10 MCV 82.2 fL (83.0-100.0) L 07/08/19 13:07 MCH 26.7 pg (28.0-33.3) L 07/11/19 04:10 MCHC 30.3 g/dL (31.6-35.5) L 07/11/19 04:10 Plt Count 436 K/mcL (140-400) H 07/08/19 13:07 MPV 9.1 fL (9.4-12.4) L 07/11/19 04:10 ESR 93 mm/hr (0-10) H 07/10/19 04:47 Carbon Dioxide 30 mEq/L (23-29) H 07/11/19 04:10 Creatinine 1.38 mg/dL (0.70-1.30) H 07/10/19 04:47 Est GFR (Non-Af Amer) 53 (> 60) L 07/10/19 04:47 Glucose 254 mg/dL (70-105) H 07/11/19 04:10 POC Glucose 296 mg/dL (70-99) H 07/11/19 12:09 Calculated Osmolality 303 (280-300) H 07/11/19 04:10 Calcium 8.3 mg/dL (8.6-10.3) L 07/11/19 04:10 C-Reactive Protein 125 mg/L (Less than 10) H 07/10/19 04:47 Consult Discharge Plan - Plan Referrals: Federico Clark DO [Primary Care Provider] -
[2019-07-11] MEDS: Acetaminophen 325 MG TABLET PO PRN (19:25)
[2019-07-11] MEDS ORDERED: Insulin DETEMIR 100 UNIT/ML X5UNITS SQ SCH ×2 (21:00)
[2019-07-11] MEDS: Metoprolol XL (24 HR) Succ 50 MG TAB.ER.24H PO SCH (21:37)
[2019-07-12] MEDS: Piperacillin/Tazobactam 3.375 GM in 0.9 % Sodium Chloride Mini Bag 100 ML IVPB SCH ×3 (00:29→16:02)
[2019-07-12 05:07] LABS: Basophils # 0.1 K/mcL (0.0-0.2); Basophils % 1.4 %; Eosinophils # 0.2 K/mcL (0.0-0.6); Hematocrit 33.5 % (37.5-50.1); Hemoglobin 10.2 g/dL (12.9-16.9); Immature Granulocytes % 2.3 % (0-4); Lymphocytes # 1.3 K/mcL (0.6-4.6); Lymphocytes % 30.4 %; Mean Corpuscular HGB Conc 30.4 g/dL (31.6-35.5); Mean Corpuscular Hemoglobin 26.6 pg (28.0-33.3); Mean Corpuscular Volume 87.2 fL (83.0-100.0); Mean Platelet Volume 8.7 fL (9.4-12.4); Monocytes # 0.4 K/mcL (0.0-1.3); Monocytes % 8.4 %; Neutrophils # 2.3 K/mcL (1.6-8.9); Platelet Count 342 K/mcL (140-400); Red Blood Count 3.84 M/mcL (4.19-5.50); Red Cell Distribution Width 13.5 % (11.5-14.5); Segmented Neutrophils % 53.5 %; White Blood Count 4.3 K/mcL (4.3-11.1)
[2019-07-12 05:17] LABS: BUN/Creatinine Ratio 13 (6-26); Blood Urea Nitrogen 12 mg/dL (8-23); Calcium 8.6 mg/dL (8.6-10.3); Carbon Dioxide 30 mEq/L (23-29); Chloride 104 mEq/L (98-107); Glucose 355 mg/dL (70-105); Osmolality,Calculated 308 (280-300); Potassium 4.1 mEq/L (3.5-5.1); Sodium 142 mEq/L (136-145); eGFR For African Americans > 60 (> 60); eGFR For Non-African Americans > 60 (> 60)
[2019-07-12] MEDS: *HR* Heparin 5,000 UNIT/ML VIAL SQ SCH ×3 (05:38→20:22)
[2019-07-12] MEDS: Aspirin Enteric Coated 81 MG Tablet PO SCH (07:39)
[2019-07-12] MEDS: amLODIPine 5 MG TABLET PO SCH (07:39)
[2019-07-12] MEDS: Venlafaxine XR (24 HR) 75 MG CAP.ER.24H PO SCH (07:39)
--- NOTE | 2019-07-12 07:39 | Internal Med Progress Note ---
<Tariq Whyte - Last Filed: 07/12/19 10:46> Hospitalist Progress Note - Encounter Date of Encounter: 07/12/19 Time of Encounter: 09:35 - Subjective Interval History: I saw evaluated and examined this patient and reviewed objective data including labs and my medical decision-making was reviewed with the Resident Physician, Forest Ge. I agree with the documented findings, disposition and treatment plan as described except to any changes set forth below. We independently had [id number] contact with the patient. Patient lying on bed. Doing well overall. Pain in his right shoulder improving. He did have low-grade fever with temperature of 99.7 this morning. On exam, erythema present over his right shoulder incision. Wound bandaged. Mild tenderness to touch. We will continue IV Zosyn. WBC count is normal. He moglobin levels are stable. Creatinine back to baseline. Blood sugars are elevated. We will increase insulin regimen further. Continue diabetic diet. Patient continues to have episodes of diarrhea. Stool for C. difficile was negative. Continue lactobacillus. - Exam Vitals: Temp Pulse Resp BP Pulse Ox 99.7 F H 91 16 159/83 93 07/12/19 07:41 07/12/19 07:41 07/12/19 07:41 07/12/19 07:41 07/12/19 07:41 - Assessment and Plan (1) Shoulder abscess Current Visit: Yes Status: Acute (2) Diabetes Current Visit: Yes Status: Acute (3) HTN (hypertension) Current Visit: Yes Status: Chronic (4) CHF (congestive heart failure) Current Visit: Yes Status: Chronic (5) Sleep apnea Current Visit: Yes Status: Chronic - Time Spent with Patient Total time spent is greater than 50% in coordination of care (as documented) at patient's floor/unit and/or counseling patient: Internal Medicine: Result - Labs CBC & Chem 7: 07/12/19 04:43 07/12/19 04:43 Labs: Short CBC 07/12/19 Range/Units 04:43 WBC 4.3 (4.3-11.1) K/mcL Hgb 10.2 L (12.9-16.9) g/dL Hct 33.5 L (37.5-50.1) % Plt Count 342 (140-400) K/mcL Neutrophils # 2.3 (1.6-8.9) K/mcL BMP 07/12/19 04:43 Sodium 142 Potassium 4.1 Chloride 104 Carbon Dioxide 30 H BUN 12 Creatinine 0.96 Glucose 355 H Calcium 8.6 Consult Discharge Plan - Plan Referrals: Federico Clark DO [Primary Care Provider] - <Forest Ge - Last Filed: 07/12/19 16:59> Hospitalist Progress Note - Encounter Date of Encounter: 07/12/19 - Subjective Interval History: Pt seen and examined at bedside. Pt states he generally feels well. Denies any subjective fever or chills. No chest pain, shortness of breath, abdominal pain, nausea, or vomiting. Continues to have loose stools. - Exam Vitals: Temp Pulse Resp BP Pulse Ox 98.5 F 81 18 137/81 97 07/12/19 03:34 07/12/19 03:34 07/12/19 03:34 07/12/19 03:34 07/12/19 03:34 Exam: Constitutional: Obese male in no acute distress Head: Normocephalic, atraumatic Eyes: PERRL, EOMI, conjunctiva pink, sclera anicteric Neck: Supple, trachea midline Lungs: Clear to auscultation bilaterally. Nonlabored breathing. No wheezes, rales, or rhonchi noted. Cardiac: RRR. +s1 +s2 No murmurs, clicks, or rubs noted. GI: Abdomen soft, nontender, obese Extremities: Warm, radial pulses palpable and symmetrical. No cyanosis, pedal edema, or calf tenderness. Right arm in sling. Neuro: Alert and oriented 3. No focal deficits. Normal speech. Skin: Warm, dry, and intact. Erythema surrounding right shoulder surgical incision improved. There is an area of induration on the proximal and inferior portion of the wound. Wound vac in place - Assessment and Plan (1) Shoulder abscess Current Visit: Yes Status: Acute Assessment and Plan: -Patient presented to Orthopedics office with fevers, chills, redness and swelling in right shoulder -3 previous surgeries in 2 months on R shoulder most recent on 06/26 for total shoulder revision -Worsening of symptoms despite outpatient antibiotics post op - Did not meet SIRS criteria - CT scan 07/08 suspicious for abscess in right shoulder involving arthroplasty, subcuaneous tissue, and musculature - ID Consulted recommending vancomycin IV, and zosyn 3.375 g IV Q8 - Orhto consulted performing shoulder irrigation and debridement on 07/09. Inflammatory fluid seen, with no gross purulence visualized - Echo 07/08 LVEF 65-70%, no Pulmonary HTN, no segmental dysfunctional, No valvular dysfunction Plan - intraoperative cultures pending - Serratia marcescens resistant to Augmentin and Cefazolin - Wound care and shoulder stabilization per ortho recommendations - Continue Zosyn (2) Diabetes Current Visit: Yes Status: Acute Assessment and Plan: - Chronic DM II - Continues to have hyperglycemia Increase to 15u Levemir BID High dose SSI and accuchecks Diabetic diet (3) HTN (hypertension) Current Visit: Yes Status: Chronic Assessment and Plan: - Chronic HTN - BP stable Plan - Cont home medications (4) CHF (congestive heart failure) Current Visit: Yes Status: Chronic Assessment and Plan: - Not in acute exacerbation - Takes lasix at home - Echo on 07/08 showed LVEF 65-70%, no pulmonary HTN, no segmental dysfunction or valvular dysfunction Plan: -Cont to hold home lasix (5) Sleep apnea Current Visit: Yes Status: Chronic Assessment and Plan: CPAP at night DVT Prophylaxis: SQ Heparin - Time Spent with Patient Total time spent is greater than 50% in coordination of care (as documented) at patient's floor/unit and/or counseling patient: Internal Medicine: Result - Labs CBC & Chem 7: 07/12/19 04:43 07/12/19 04:43 Labs: Short CBC 07/12/19 Range/Units 04:43 WBC 4.3 (4.3-11.1) K/mcL Hgb 10.2 L (12.9-16.9) g/dL Hct 33.5 L (37.5-50.1) % Plt Count 342 (140-400) K/mcL Neutrophils # 2.3 (1.6-8.9) K/mcL BMP 07/12/19 04:43 Sodium 142 Potassium 4.1 Chloride 104 Carbon Dioxide 30 H BUN 12 Creatinine 0.96 Glucose 355 H Calcium 8.6 <Tariq Whyte - Last Filed: 07/12/19 10:46> (2) Diabetes Qualifiers: Diabetes mellitus type: type 2 Diabetes mellitus custodial insulin use: with marine oil terminal superintendent use Diabetes mellitus complication status: without complication Qualified Code(s): E11.9 - Type 2 diabetes mellitus without complications; Z79.4 - laborer marine terminal (current) use of insulin (3) HTN (hypertension) Qualifiers: Hypertension type: essential hypertension Qualified Code(s): I10 - Essential (primary) hypertension (4) CHF (congestive heart failure) Qualifiers: Heart failure type: diastolic Heart failure chronicity: chronic Qualified Code(s): I50.32 - Chronic diastolic (congestive) heart failure (5) Sleep apnea Qualifiers: Sleep apnea type: unspecified type Qualified Code(s): G47.30 - Sleep apnea, unspecified <Forest Ge - Last Filed: 07/12/19 16:59> (2) Diabetes Qualifiers: Diabetes mellitus type: type 2 Diabetes mellitus marine oil terminal superintendent insulin use: with custodial use Diabetes mellitus complication status: without complication Qualified Code(s): E11.9 - Type 2 diabetes mellitus without complications; Z79.4 - detention (current) use of insulin (3) HTN (hypertension) Qualifiers: Hypertension type: essential hypertension Qualified Code(s): I10 - Essential (primary) hypertension (4) CHF (congestive heart failure) Qualifiers: Heart failure type: diastolic Heart failure chronicity: chronic Qualified Code(s): I50.32 - Chronic diastolic (congestive) heart failure (5) Sleep apnea Qualifiers: Sleep apnea type: unspecified type Qualified Code(s): G47.30 - Sleep apnea, unspecified
[2019-07-12] MEDS: Gabapentin 400 MG CAPSULE PO SCH ×3 (07:40→20:22)
[2019-07-12] MEDS: Isosorbide MONOnitrate (24 HR) 60 MG TAB.ER.24H PO SCH (07:40)
[2019-07-12] MEDS: Lactobacillus 1 EACH CAP.SPRINK PO SCH (07:40)
[2019-07-12] MEDS: Insulin LISPRO 300 UNITS/3 ML VIAL SQ SCH ×7 (07:44→20:34)
[2019-07-12] MEDS: Insulin DETEMIR 100 UNIT/ML X5UNITS SQ SCH ×2 (08:38→20:23)
[2019-07-12] MEDS: Metoprolol XL (24 HR) Succ 50 MG TAB.ER.24H PO SCH (20:22)
[2019-07-12] MEDS: Acetaminophen 325 MG TABLET PO PRN (20:27)
--- NOTE | 2019-07-12 21:09 | Orthopedics Progress Note ---
Date of Encounter: 07/12/19 Time of Encounter: 21:07 Subjective Principal diagnosis: Right shoulder infection Interval history: The patient is without complaints. Afebrile vital signs are stable. Incision is clean dry and intact. Neurovascularly intact with regard to bilateral upper extremities. Assessment :stable. Plan mobilize ,continue analgesics, continue and tailor antibiotics per Dr. Wyatt and infectious disease/hospitalist service, discharge planning. Objective Vital signs: Vital Signs Temp Pulse Resp BP Pulse Ox 07/12/19 19:03 98.3 F 92 20 158/83 94 07/12/19 16:51 100.0 F H 88 21 97 07/12/19 07:41 99.7 F H 91 16 159/83 93 07/12/19 03:34 98.5 F 81 18 137/81 97 07/12/19 00:00 98.2 F 91 18 155/78 98 Intake and Output 07/12/19 07/12/19 07/12/19 07:59 15:59 23:59 Intake Total 790 / 1470 340 / 1470 340 / 1470 Balance 790 / 1470 340 / 1470 340 / 1470 Intake: IV Fluids 100 / 300 100 / 300 100 / 300 Zosyn 3.375 GM In 0.9 % Sodium 100 / 300 100 / 300 100 / 300 Chloride (Mini-Bag +) 100 ML @ 25 mls/hr IVPB Q8HR [facility] Rx#: [id number] Oral 690 / 1170 240 / 1170 240 / 1170 Other: Meal Breakfast Dinner Percent of Meal Consumed 100% 100% Stool Size Small Stool Consistency liquid # Voids 1 1 # Bowel Movements 1 1 Weight 150.46 kg Blood Glucose* 386 216 175 Patient Weight 07/12/19 23:59 Weight 150.46 kg - Labs CBC & BMP: 07/12/19 04:43 07/12/19 04:43 Labs: Abnormal lab results RBC 3.84 M/mcL (4.19-5.50) L 07/12/19 04:43 Hgb 10.2 g/dL (12.9-16.9) L 07/12/19 04:43 Hct 33.5 % (37.5-50.1) L 07/12/19 04:43 MCV 82.2 fL (83.0-100.0) L 07/08/19 13:07 MCH 26.6 pg (28.0-33.3) L 07/12/19 04:43 MCHC 30.4 g/dL (31.6-35.5) L 07/12/19 04:43 Plt Count 436 K/mcL (140-400) H 07/08/19 13:07 MPV 8.7 fL (9.4-12.4) L 07/12/19 04:43 ESR 93 mm/hr (0-10) H 07/12/19 04:45 Carbon Dioxide 30 mEq/L (23-29) H 07/12/19 04:43 Creatinine 1.38 mg/dL (0.70-1.30) H 07/10/19 04:47 Est GFR (Non-Af Amer) 53 (> 60) L 07/10/19 04:47 Glucose 355 mg/dL (70-105) H 07/12/19 04:43 POC Glucose 216 mg/dL (70-99) H 07/12/19 12:34 Calculated Osmolality 308 (280-300) H 07/12/19 04:43 Calcium 8.3 mg/dL (8.6-10.3) L 07/11/19 04:10 C-Reactive Protein 40 mg/L (Less than 10) H 07/12/19 04:43 Consult Discharge Plan - Plan Referrals: Federico Clark DO [Primary Care Provider] -
[2019-07-13] MEDS: Piperacillin/Tazobactam 3.375 GM in 0.9 % Sodium Chloride Mini Bag 100 ML IVPB SCH ×2 (00:32→07:55)
[2019-07-13 05:59] LABS: Basophils # 0.1 K/mcL (0.0-0.2); Eosinophils # 0.2 K/mcL (0.0-0.6); Eosinophils % 3.8 %; Hematocrit 31.3 % (37.5-50.1); Hemoglobin 9.7 g/dL (12.9-16.9); Immature Granulocytes % 2.1 % (0-4); Lymphocytes # 1.5 K/mcL (0.6-4.6); Lymphocytes % 27.6 %; Mean Corpuscular Hemoglobin 26.5 pg (28.0-33.3); Mean Corpuscular Volume 85.5 fL (83.0-100.0); Mean Platelet Volume 9.2 fL (9.4-12.4); Monocytes # 0.4 K/mcL (0.0-1.3); Monocytes % 8.4 %; Platelet Count 347 K/mcL (140-400); Red Blood Count 3.66 M/mcL (4.19-5.50); Red Cell Distribution Width 13.4 % (11.5-14.5); Segmented Neutrophils % 57.1 %; White Blood Count 5.3 K/mcL (4.3-11.1)
[2019-07-13 06:21] LABS: BUN/Creatinine Ratio 14 (6-26); Blood Urea Nitrogen 14 mg/dL (8-23); Calcium 8.9 mg/dL (8.6-10.3); Carbon Dioxide 30 mEq/L (23-29); Chloride 103 mEq/L (98-107); Glucose 288 mg/dL (70-105); Osmolality,Calculated 299 (280-300); Potassium 3.8 mEq/L (3.5-5.1); Sodium 139 mEq/L (136-145); eGFR For African Americans > 60 (> 60); eGFR For Non-African Americans > 60 (> 60)
[2019-07-13] MEDS: *HR* Heparin 5,000 UNIT/ML VIAL SQ SCH ×3 (06:27→20:49)
[2019-07-13] MEDS: Aspirin Enteric Coated 81 MG Tablet PO SCH (07:55)
[2019-07-13] MEDS: amLODIPine 5 MG TABLET PO SCH (07:55)
[2019-07-13] MEDS: Isosorbide MONOnitrate (24 HR) 60 MG TAB.ER.24H PO SCH (07:55)
[2019-07-13] MEDS: Venlafaxine XR (24 HR) 75 MG CAP.ER.24H PO SCH (07:55)
[2019-07-13] MEDS: Lactobacillus 1 EACH CAP.SPRINK PO SCH (07:55)
[2019-07-13] MEDS: Gabapentin 400 MG CAPSULE PO SCH ×3 (07:55→20:49)
[2019-07-13] MEDS: Insulin LISPRO 300 UNITS/3 ML VIAL SQ SCH ×7 (07:56→20:50)
[2019-07-13] MEDS: Insulin DETEMIR 100 UNIT/ML X5UNITS SQ SCH ×2 (07:56→20:49)
--- NOTE | 2019-07-13 08:26 | Internal Med Progress Note ---
Hospitalist Progress Note - Encounter Date of Encounter: 07/13/19 - Exam Vitals: Temp Pulse Resp BP Pulse Ox 98.7 F 86 18 168/81 95 07/13/19 06:31 07/13/19 06:31 07/13/19 06:31 07/13/19 06:31 07/13/19 06:31 - Time Spent with Patient Total time spent is greater than 50% in coordination of care (as documented) at patient's floor/unit and/or counseling patient: Internal Medicine: Result - Labs CBC & Chem 7: 07/13/19 04:30 07/13/19 04:30 Labs: Short CBC 07/13/19 Range/Units 04:30 WBC 5.3 (4.3-11.1) K/mcL Hgb 9.7 L (12.9-16.9) g/dL Hct 31.3 L (37.5-50.1) % Plt Count 347 (140-400) K/mcL Neutrophils # 3.0 (1.6-8.9) K/mcL BMP 07/13/19 04:30 Sodium 139 Potassium 3.8 Chloride 103 Carbon Dioxide 30 H BUN 14 Creatinine 0.97 Glucose 288 H Calcium 8.9 Consult Discharge Plan - Plan Referrals: Federico Clark DO [Primary Care Provider] -
--- NOTE | 2019-07-13 10:13 | Orthopedics Progress Note ---
Date of Encounter: 07/13/19 Time of Encounter: 10:11 Subjective Principal diagnosis: Right shoulder infection Interval history: No overnight issues.. Denies fevers or chills. Right shoulder exam with improving erythema. Minimal amount of drainage on dressing, no purulence. He is neurovascularly intact over ax/m/r/u. Ctx: Serratia POD#4 s/p I&D R shoulder Continue IV antibiotics per ID, likely 6 weeks of IV antibiotics. Appreciate recs Brace at all times Remove for hygiene only Continue vanessa dressing If PICC line placed and antibiotics arranged, ok to d/c from ortho standpoint today F/u with me AM in office for wound check Objective Vital signs: Vital Signs Temp Pulse Resp BP Pulse Ox 07/13/19 06:31 98.7 F 86 18 168/81 95 07/13/19 05:32 98.5 F 84 20 141/86 95 07/13/19 00:51 97.9 F 93 20 139/77 93 07/12/19 20:25 94 07/12/19 19:03 98.3 F 92 20 158/83 94 07/12/19 16:51 100.0 F H 88 21 97 Intake and Output 07/12/19 07/13/19 07/13/19 23:59 07:59 15:59 Intake Total 340 / 1470 300 / 300 Balance 340 / 1470 300 / 300 Intake: IV Fluids 100 / 300 100 / 100 Zosyn 3.375 GM In 0.9 % Sodium 100 / 300 100 / 100 Chloride (Mini-Bag +) 100 ML @ 25 mls/hr IVPB Q8HR [facility] Rx#: [id number] Oral 240 / 1170 200 / 200 Other: Meal Dinner Percent of Meal Consumed 100% # Voids 1 1 # Bowel Movements 1 Weight 150.45 kg Blood Glucose* 175 270 Patient Weight 07/13/19 23:59 Weight 150.45 kg - Labs CBC & BMP: 07/13/19 04:30 07/13/19 04:30 Labs: Abnormal lab results RBC 3.66 M/mcL (4.19-5.50) L 07/13/19 04:30 Hgb 9.7 g/dL (12.9-16.9) L 07/13/19 04:30 Hct 31.3 % (37.5-50.1) L 07/13/19 04:30 MCV 82.2 fL (83.0-100.0) L 07/08/19 13:07 MCH 26.5 pg (28.0-33.3) L 07/13/19 04:30 MCHC 31.0 g/dL (31.6-35.5) L 07/13/19 04:30 Plt Count 436 K/mcL (140-400) H 07/08/19 13:07 MPV 9.2 fL (9.4-12.4) L 07/13/19 04:30 ESR 93 mm/hr (0-10) H 07/12/19 04:45 Carbon Dioxide 30 mEq/L (23-29) H 07/13/19 04:30 Creatinine 1.38 mg/dL (0.70-1.30) H 07/10/19 04:47 Est GFR (Non-Af Amer) 53 (> 60) L 07/10/19 04:47 Glucose 288 mg/dL (70-105) H 07/13/19 04:30 POC Glucose 175 mg/dL (70-99) H 07/12/19 20:28 Calculated Osmolality 308 (280-300) H 07/12/19 04:43 Calcium 8.3 mg/dL (8.6-10.3) L 07/11/19 04:10 C-Reactive Protein 40 mg/L (Less than 10) H 07/12/19 04:43 Consult Discharge Plan - Plan Referrals: Federico Clark DO [Primary Care Provider] -
--- NOTE | 2019-07-13 14:08 | Infectious Disease Progress No ---
ID Progress Note Date of Encounter: 07/13/19 Time of Encounter: 14:05 - Subjective Subjective: Patient seen and examined. No acute events noted overnight. Denies fevers, chills, or rigors. Denies chest pain, shortness of breath, or cough. Denies nausea, vomiting, or constipation. States he has waxing and waning diarrhea. C. diff was negative. Denies abdominal pain or urinary complaints. Denies oral thrush or skin rashes. Denies pain in the shoulder and states he thinks the red ness is improved. - Objective CBC & Chem 7: 07/14/19 03:00 07/14/19 03:00 - Line Documentation Line Documentation: EPI (LUE) - Exam Vitals: Temp Pulse Resp BP Pulse Ox 98.2 F 98 18 154/84 98 07/13/19 11:10 07/13/19 11:10 07/13/19 11:10 07/13/19 11:10 07/13/19 11:10 Exam: Head: Atraumatic, normal inspection, normocephalic. Eye: EOMI, PERRLA, no scleral icterus noted. ENT: Mucous membranes moist. No odontogenic infection noted. Neck: Normal inspection, no meningismus. Respiratory: Clear to auscultation. No rales, respiratory distress, rhonchi, or wheezes noted. Cardiovascular: Regular rate and rhythm, S1 and S2 audible. No murmurs, rubs, or gallops. GI: Soft, obese, normal bowel sounds. Non-tender. Extremities:No joint swelling, pedal edema noted. Right shoulder surgical incision with HOPE dressing intact. Moderate amount of seropurulent drainage noted on the dressing. Erythema improved. Tenderness noted with palpation of the axillary area. ROM not assessed. Neurological: Alert, oriented 3, no focal deficits. Psychiatric: normal affect, normal mood. Skin: Dry, intact, warm. Normal color. No rashes. - Assessment and Plan (1) Shoulder abscess Current Visit: Yes Status: Acute Location: Right shoulder. Causative organism: S. marcescens. CT of the right shoulder shows a large air and fluid filled collection overlying the anterior aspect of the right shoulder arthroplasty involving the subcutaneous tissues, anterior shoulder musculature, and surrounding the prosthesis, most consistent with abscess. Likely secondary to right shoulder surgery. No SIRS criteria. ESR 112, CRP 142. Ortho consulted. Status post tight glenohumeral joint irrigation and debridement 07/09/[address] Wyatt. Operative note reviewed. Intra-op findings discussed with Dr. Wyatt. Intra-op cultures as above. Currently on Zosyn. SNOMED Code(s): 60106134 (2) Status post reverse total arthroplasty of right shoulder Current Visit: Yes Status: Acute SNOMED Code(s): 95982509792633274, [id number] (3) Diabetes Current Visit: Yes Status: Acute Recommend aggressive glucose monitoring and control to promote wound healing and prevent reinfection. Management per the primary team. Qualifiers: Diabetes mellitus type: type 2 Diabetes mellitus remote computer terminal operator insulin use: with jail use Diabetes mellitus complication status: without complication Qualified Code(s): E11.9 - Type 2 diabetes mellitus without complications; Z79.4 - intermediate project manager (current) use of insulin SNOMED Code(s): 60256583 (4) HTN (hypertension) Current Visit: Yes Status: Chronic Qualifiers: Hypertension type: essential hypertension Qualified Code(s): I10 - Essential (primary) hypertension SNOMED Code(s): 46228709 (5) CHF (congestive heart failure) Current Visit: Yes Status: Chronic Qualifiers: Heart failure type: diastolic Heart failure chronicity: chronic Qualified Code(s): I50.32 - Chronic diastolic (congestive) heart failure SNOMED Code(s): 07864617 (6) Sleep apnea Current Visit: Yes Status: Chronic Qualifiers: Sleep apnea type: unspecified type Qualified Code(s): G47.30 - Sleep apnea, unspecified SNOMED Code(s): 08024555 (7) Arthritis Current Visit: Yes Status: Chronic SNOMED Code(s): 9042356 (8) Diarrhea Current Visit: Yes Status: Acute Likely chronic. He reported having diarrhea prior to admission. C. diff was negative. Probiotics BID. Qualifiers: Diarrhea type: unspecified type Qualified Code(s): R19.7 - Diarrhea, unspecified SNOMED Code(s): 51678060 - Recommendations Recommendations: Wound care and activity per the ortho team. Discontinue Zosyn. Start Levaquin 750mg IV daily. Duration of treatment depends on the clinical picture, but likely 4-6 weeks. Monitor renal function and for drug toxicity and dose-adjust antibiotics. Consult VAT for PICC insertion. Will need weekly CBC, BUN/Cr, ESR, CRP. Will need weekly PICC care per protocol. Follow up with ID 07/28/19 at 1440. Consult Discharge Plan - Plan Additional Instructions: Patient is awaiting insurance approval for Levoquin Referrals: Federico Clark DO [Primary Care Provider] - Tamera Berg PROFESSOR OF COMMUNICATION AND WRITING [Advanced Practice Nurse] - 07/28/19 2:40 pm Prescriptions: levoFLOXacin 750 MG/150 ML [Levaquin Premix 750mg/150 mL] 750 mg IVPB DAILY 42 Days #42 bag Prescription Printed - Attending Attestation I have personally performed a face to face evaluation on this patient. I have reviewed and agree with the care plan. History and Exam by me shows: Assessment and plan: right shoulder abscess CT right shoulder large air-fluid level collection overlying the anterior aspect of the right shoulder consistent with an abscess causative organism Serratia marcescens status post right glenohumeral joint irrigation and debridement. Intra-Op reveals inflammatory fluid but no jitendra purulence. Intra-Op cultures sent Status post reversal total arthroplasty of the right shoulder 05/27/2019 Status post right open reduction reverse total shoulder for right shoulder trau matic instability 06/12/2019 Status post right reverse total shoulder revision of glenosphere, revision tray with polyexchange 06/26/2019 Morbid obesity Diabetes mellitus type 2 Hypertension CHF Arthritis Recommendations Discontinue Zosyn. Start Levaquin 750mg IV daily. Duration of treatment depends on the clinical picture, but likely 4-6 weeks. Monitor renal function and for drug toxicity and dose-adjust antibiotics. Consult VAT for PICC insertion. Will need weekly CBC, BUN/Cr, ESR, CRP. Will need weekly PICC care per protocol. Follow up with ID 07/28/19 at 1440.
[2019-07-13] MEDS: levoFLOXacin 750 MG/150 ML 750 MG/150 ML BAG IVPB SCH (14:44)
--- NOTE | 2019-07-13 15:03 | Discharge Summary ---
<Tariq Whyte - Last Filed: 07/13/19 15:14> Orders not resulted at time of discharge: Pending orders 07/09/19 12:50 AFB Culture, Tissue [TB] Routine AFB Smear [TB] Routine Culture,Anaerobic [RM] Routine Fungal Culture [MYC] Routine Date of Encounter: 07/13/19 Time of Encounter: 15:17 - Discharge Diagnosis (1) Shoulder abscess Status: Acute (2) Diabetes Status: Acute Qualifiers: Diabetes mellitus type: type 2 Diabetes mellitus terminal carman insulin use: with half-way use Diabetes mellitus complication status: without complication Qualified Code(s): E11.9 - Type 2 diabetes mellitus without complications; Z79.4 - long-term (current) use of insulin (3) HTN (hypertension) Status: Chronic Qualifiers: Hypertension type: essential hypertension Qualified Code(s): I10 - Essential (primary) hypertension (4) CHF (congestive heart failure) Status: Chronic Qualifiers: Heart failure type: diastolic Heart failure chronicity: chronic Qualified Code(s): I50.32 - Chronic diastolic (congestive) heart failure (5) Sleep apnea Status: Chronic Qualifiers: Sleep apnea type: unspecified type Qualified Code(s): G47.30 - Sleep apnea, unspecified Hospital course: Mr. Verma is a 59 year old male - Time Spent with Patient Total time spent providing and/or coordinating discharge services: - Discharge Medications Prescriptions: New levoFLOXacin 750 MG/150 ML [Levaquin Premix 750mg/150 mL] 750 mg IVPB DAILY 42 Days #42 bag Continued Amlodipine Besylate 10 mg PO DAILY Aspirin [Adult Aspirin] 81 mg PO DAILY Furosemide [Lasix] 40 mg PO DAILY Gabapentin 1,200 mg PO TID Glimepiride [Amaryl] 4 mg PO DAILY hydrOXYzine HCl [Hydroxyzine HCl] 25 mg PO Q8H PRN PRN Reason: Anxiety Insulin Regular, Human [Novolin R] 10 unit SQ TIDWM Isosorbide MONOnitrate (24 HR) [Imdur] 60 mg PO DAILY Meloxicam 15 mg PO DAILY Metformin HCl 1,000 mg PO DAILY Metoprolol Succinate [Toprol Xl] 100 mg PO HS Pioglitazone HCl 45 mg PO DAILY Rosuvastatin Calcium 20 mg PO HS Venlafaxine HCl [Venlafaxine HCl ER] 225 mg PO DAILY Lisinopril [Zestril] 5 mg PO DAILY Tamsulosin HCl 0.4 mg PO DAILY HYDROcodone/Acet 10/325 mg [[place] 10-325 mg] 1 tab PO BID PRN PRN Reason: Pain Home Medications: Amlodipine Besylate 10 mg PO DAILY 05/27/19 [History] Aspirin [Adult Aspirin] 81 mg PO DAILY 05/27/19 [History] Furosemide [Lasix] 40 mg PO DAILY 05/27/19 [History] Gabapentin 1,200 mg PO TID 05/27/19 [History] Glimepiride [Amaryl] 4 mg PO DAILY 05/27/19 [History] Insulin Regular, Human [Novolin R] 10 unit SQ TIDWM 05/27/19 [History] Isosorbide MONOnitrate (24 HR) [Imdur] 60 mg PO DAILY 05/27/19 [History] Meloxicam 15 mg PO DAILY 05/27/19 [History] Metformin HCl 1,000 mg PO DAILY 05/27/19 [History] Metoprolol Succinate [Toprol Xl] 100 mg PO HS 05/27/19 [History] Pioglitazone HCl 45 mg PO DAILY 05/27/19 [History] Rosuvastatin Calcium 20 mg PO HS 05/27/19 [History] Venlafaxine HCl [Venlafaxine HCl ER] 225 mg PO DAILY 05/27/19 [History] hydrOXYzine HCl [Hydroxyzine HCl] 25 mg PO Q8H PRN 05/27/19 [History] HYDROcodone/Acet 10/325 mg [[place] 10-325 mg] 1 tab PO BID PRN 07/08/19 [History] Lisinopril [Zestril] 5 mg PO DAILY 07/08/19 [History] Tamsulosin HCl 0.4 mg PO DAILY 07/08/19 [History] levoFLOXacin 750 MG/150 ML [Levaquin Premix 750mg/150 mL] 750 mg IVPB DAILY 42 Days #42 bag 07/13/19 [Rx] Allergies/Adverse Reactions: Allergy/AdvReac Type Severity Reaction Status Date / Time adhesive tape AdvReac Rash Verified 05/27/19 07:06 oxycodone [From OxyContin] AdvReac Nightmare Verified 07/08/19 21:44 Date of admission: 07/08/19 15:14 Primary care physician: Federico Clark DO Consults: 07/08/19 13:55 Consult to Infectious Diseases [CONS] Routine Consulting Provider: Infectious Disease Mara Reason for Consult: septic arthritis Call Completed: Yes 07/11/19 09:58 Consult to Agricultural Chemicals Inspector [CONS] Routine Reason for SW Consult: IV atbs - Constitutional Vitals: Temp Pulse Resp BP Pulse Ox 98.7 F 99 18 157/74 95 07/13/19 14:20 07/13/19 14:20 07/13/19 14:20 07/13/19 14:20 07/13/19 14:20 - Patient Status Disposition: Home, Self-Care Condition: Fair - Discharge Instructions Follow Up With: Tamera Berg MUSTANGER [Advanced Practice Nurse] - 07/28/19 2:40 pm Federico Clark DO [Primary Care Provider] - - Attending Attestation I saw evaluated and examined this patient and reviewed objective data including labs and my medical decision-making was reviewed with the Resident Physician, Dago Boland. I agree with the documented findings, disposition and discharge plan as described except to any changes set forth below. We independently had [id number] contact with the patient. Patient with a history of coronary artery disease, diabetes, hypertension, hyperlipidemia was hospitalized here from orthopedics clinic due to infection of his right shoulder joint. Patient had previously undergone reverse total shoulder replacement and was found to have erythema and redness involving this region and so he was sent to the ER. Patient underwent a CT scan which showed air and fluid-filled collection over the anterior aspect of the right shoulder arthroplasty. He therefore underwent surgery with irrigation and debridement of this region. Since then his been recovering slowly. His intraoperative cultures were positive for Serratia marcescens. Patient has been receiving IV antibiotics here. He has been evaluated by infectious disease and recommended intravenous Levaquin for 6 weeks. This will be arranged and patient will be discharged from the hospital once everything is in place for him to receive this antibiotic. Patient will have a PICC line placed today. Time spent on discharge: 8 min <Dago Boland - Last Filed: 07/13/19 17:29> - NOTES TO OUTPATIENT PROVIDER Notes to Outpatient Provider: Patient will need weekly CBC, BUN/Cr, ESR, CRP, as well as weekly PICC care per protocol. He is instructed to follow up with infectious disease in the outpatient setting 07/28/19 at 1440. Orders not resulted at time of discharge: Pending orders 07/09/19 12:50 AFB Culture, Tissue [TB] Routine AFB Smear [TB] Routine Culture,Anaerobic [RM] Routine Fungal Culture [MYC] Routine Date of Encounter: 07/13/19 - Discharge Diagnosis (1) Shoulder abscess Priority: Primary Status: Acute (2) Diabetes Priority: Secondary Status: Acute Qualifiers: Diabetes mellitus type: type 2 Diabetes mellitus half-way insulin use: with terminal carman use Diabetes mellitus complication status: without complication Qualified Code(s): E11.9 - Type 2 diabetes mellitus without complications; Z79.4 - long-term (current) use of insulin (3) History of dislocation of shoulder Priority: Secondary Status: Acute (4) Status post reverse total arthroplasty of right shoulder Priority: Secondary Status: Acute (5) Status post surgery for recurrent dislocation of shoulder Priority: Secondary Status: Acute (6) Arthritis Priority: Secondary Status: Chronic (7) CHF (congestive heart failure) Priority: Secondary Status: Chronic Qualifiers: Heart failure type: diastolic Heart failure chronicity: chronic Qualified Code(s): I50.32 - Chronic diastolic (congestive) heart failure (8) HTN (hypertension) Priority: Secondary Status: Chronic Qualifiers: Hypertension type: essential hypertension Qualified Code(s): I10 - Essential (primary) hypertension (9) Sleep apnea Priority: Secondary Status: Chronic Qualifiers: Sleep apnea type: unspecified type Qualified Code(s): G47.30 - Sleep apnea, unspecified Hospital course: Mr. Verma is a 59 year old male with a PMH of obstructive sleep apnea on CPAP, DM, HTN, CHF, and prior [place] who presented to [facility] ED on 07/08/19 from orthopedics has direct admit for a shoulder infection. Patient has had 3 surgeries in the last 2 months. Last surgery was on 06/26/19, which was a total shoulder revision. He had presented to his orthopedist clinic with a chief complaint of fever, chills, redness, and swelling, which failed outpatient antibiotic treatment. He also reported having drenching sweats for about one week, as well as diarrhea. He was admitted to the hospitalist service for further management. He was started on IV vancomycin and Zosyn, and both orthopedics and infectious disease were consulted. CT scan of the right shoulder demonstrated large air and fluid collection overlying anterior aspect of right shoulder involving subcutaneous tissues, anterior shoulder musculature, and surrounding prosthesis. These findings were most consistent with an abscess. Labs demonstrated an elevated ESR at 112, and a CRP of 142. He underwent right-sided glenohumeral joint irrigation and debridement on 07/09. A wound VAC was placed post op. Wound culture was obtained, which grew Serratia marcescens, resistant to Augmentin and cefazolin. Per the recommendations of infectious disease, patient will need treatment with IV Levaquin for 6 weeks. VAT has been consulted for PICC line insertion. Per the recommendations of ID, he will need weekly CBC, BUN/creatinine, ESR, CRP, and weekly PICC care per protocol. He is instructed to follow-up with infectious disease in the outpatient setting on 07/28/19 at 1440. - Time Spent with Patient Total time spent providing and/or coordinating discharge services: Date of admission: 07/08/19 15:14 Primary care physician: Federico Clark DO Consults: 07/08/19 13:55 Consult to Infectious Diseases [CONS] Routine Consulting Provider: Infectious Disease Mara Reason for Consult: septic arthritis Call Completed: Yes 07/11/19 09:58 Consult to Agricultural Chemicals Inspector [CONS] Routine Reason for SW Consult: IV atbs Discharging clinician: Dago Boland Anticipated date of discharge: 07/13/19 - Constitutional Vitals: Temp Pulse Resp BP Pulse Ox 98.7 F 99 18 157/74 95 07/13/19 14:20 07/13/19 14:20 07/13/19 14:20 07/13/19 14:20 07/13/19 14:20 Exam: General: A&O X3, conversant, no acute distress Head: atraumatic, normocephalic Eye: PERRL, EOMI, conjuntiva pink, sclera anicteric Neck: Supple, trachea midline; No lymphadenopathy Respiratory: CTAB. No accessory muscle use, wheezes, rales, or rhonchi Cardiovascular: RRR, +S1, +S2; no murmurs, rubs, gallops Abdomen: Soft, nontender Extremities: Right arm is in a sling; surgical incision with dressing intact; mild erythema warm, radial pulses palpable and symmetrical Psychiatric: Normal affect, normal mood Skin: Dry, intact - Patient Status Overall status at discharge: patient is not back to baseline - Diet and Activity Activity: increase activity as tolerated Diet: advance to your usual diet
--- NOTE | 2019-07-13 15:51 | Physician Discharge Referral ---
Home Health/Hosp Referral Info Transfer to: Home Health Provider in Charge Post Discharge: PCP - Diagnosis (1) Shoulder abscess Priority: Primary Status: Acute (2) HTN (hypertension) Priority: Secondary Status: Chronic (3) CHF (congestive heart failure) Priority: Secondary Status: Chronic (4) Sleep apnea Priority: Secondary Status: Chronic (5) Arthritis Priority: Secondary Status: Chronic (6) Status post reverse total arthroplasty of right shoulder Priority: Secondary Status: Acute (7) History of dislocation of shoulder Priority: Secondary Status: Acute - Respiratory Orders Smoking Cessation: Smoking cessation has been advised. For more information, call the [place] Tobacco Quit Line at 3-764-NGJK-NOW. - Diet/Nutrition Diet/Nutrition Orders: Regular - Services Needed Following services are medically necessary services: Home Health Aide, Home Infusion Home Care Orders: Patient will need weekly CBC, BUN/Cr, ESR, CRP, as well as weekly PICC care per protocol. Other Treatments: Patient will need weekly CBC, BUN/Cr, ESR, CRP, as well as weekly PICC care per protocol. - Transfer Medications Prescriptions: levoFLOXacin 750 MG/150 ML [Levaquin Premix 750mg/150 mL] 750 mg IVPB DAILY 42 Days #42 bag Prescription Printed Home Medications: Amlodipine Besylate 10 mg PO DAILY 05/27/19 [History] Aspirin [Adult Aspirin] 81 mg PO DAILY 05/27/19 [History] Furosemide [Lasix] 40 mg PO DAILY 05/27/19 [History] Gabapentin 1,200 mg PO TID 05/27/19 [History] Glimepiride [Amaryl] 4 mg PO DAILY 05/27/19 [History] Insulin Regular, Human [Novolin R] 10 unit SQ TIDWM 05/27/19 [History] Isosorbide MONOnitrate (24 HR) [Imdur] 60 mg PO DAILY 05/27/19 [History] Meloxicam 15 mg PO DAILY 05/27/19 [History] Metformin HCl 1,000 mg PO DAILY 05/27/19 [History] Metoprolol Succinate [Toprol Xl] 100 mg PO HS 05/27/19 [History] Pioglitazone HCl 45 mg PO DAILY 05/27/19 [History] Rosuvastatin Calcium 20 mg PO HS 05/27/19 [History] Venlafaxine HCl [Venlafaxine HCl ER] 225 mg PO DAILY 05/27/19 [History] hydrOXYzine HCl [Hydroxyzine HCl] 25 mg PO Q8H PRN 05/27/19 [History] HYDROcodone/Acet 10/325 mg [[place] 10-325 mg] 1 tab PO BID PRN 07/08/19 [History] Lisinopril [Zestril] 5 mg PO DAILY 07/08/19 [History] Tamsulosin HCl 0.4 mg PO DAILY 07/08/19 [History] levoFLOXacin 750 MG/150 ML [Levaquin Premix 750mg/150 mL] 750 mg IVPB DAILY 42 Days #42 bag 07/13/19 [Rx] Allergies/Adverse Reactions: Allergy/AdvReac Type Severity Reaction Status Date / Time adhesive tape AdvReac Rash Verified 05/27/19 07:06 oxycodone [From OxyContin] AdvReac Nightmare Verified 07/08/19 21:44 Certification: Further, I certify that my clinical findings support that this patient is homebound (i.e. absences from home require considerable and taxing effort and are for medical reasons or [employer] or infrequently or short duration when for other reasons) because: Homebound Reason: Post-surgery restriction and or conditions limit ability to leave home Attestation: My signature below is to certify that this patient is under my care and that I, or nurse practitioner, or a physician's high school assistant football coach working with me, has a [id number] encounter with this patient.
[2019-07-13] MEDS: Metoprolol XL (24 HR) Succ 50 MG TAB.ER.24H PO SCH (20:49)
[2019-07-14 03:11] LABS: Basophils # 0.1 K/mcL (0.0-0.2); Basophils % 0.6 %; Eosinophils # 0.3 K/mcL (0.0-0.6); Hematocrit 31.8 % (37.5-50.1); Hemoglobin 9.8 g/dL (12.9-16.9); Immature Granulocytes % 1.9 % (0-4); Lymphocytes # 1.7 K/mcL (0.6-4.6); Lymphocytes % 20.8 %; Mean Corpuscular HGB Conc 30.8 g/dL (31.6-35.5); Mean Corpuscular Hemoglobin 26.3 pg (28.0-33.3); Mean Corpuscular Volume 85.5 fL (83.0-100.0); Mean Platelet Volume 8.7 fL (9.4-12.4); Monocytes # 0.6 K/mcL (0.0-1.3); Monocytes % 7.3 %; Neutrophils # 5.4 K/mcL (1.6-8.9); Platelet Count 351 K/mcL (140-400); Red Blood Count 3.72 M/mcL (4.19-5.50); Red Cell Distribution Width 13.7 % (11.5-14.5); Segmented Neutrophils % 66.4 %
[2019-07-14 03:13] LABS: White Blood Count 8.2 K/mcL (4.3-11.1)
[2019-07-14 03:30] LABS: BUN/Creatinine Ratio 17 (6-26); Blood Urea Nitrogen 15 mg/dL (8-23); Carbon Dioxide 31 mEq/L (23-29); Chloride 102 mEq/L (98-107); Glucose 208 mg/dL (70-105); Osmolality,Calculated 293 (280-300); Potassium 3.8 mEq/L (3.5-5.1); Sodium 138 mEq/L (136-145); eGFR For African Americans > 60 (> 60); eGFR For Non-African Americans > 60 (> 60)
[2019-07-14] MEDS: *HR* Heparin 5,000 UNIT/ML VIAL SQ SCH ×2 (05:23→13:06)
[2019-07-14] MEDS: Gabapentin 400 MG CAPSULE PO SCH ×2 (08:05→15:18)
[2019-07-14] MEDS: Isosorbide MONOnitrate (24 HR) 60 MG TAB.ER.24H PO SCH (08:05)
[2019-07-14] MEDS: Aspirin Enteric Coated 81 MG Tablet PO SCH (08:05)
[2019-07-14] MEDS: amLODIPine 5 MG TABLET PO SCH (08:05)
[2019-07-14] MEDS: Lactobacillus 1 EACH CAP.SPRINK PO SCH (08:05)
[2019-07-14] MEDS: Venlafaxine XR (24 HR) 75 MG CAP.ER.24H PO SCH (08:05)
[2019-07-14] MEDS: Insulin LISPRO 300 UNITS/3 ML VIAL SQ SCH ×3 (08:08→13:04)
[2019-07-14] MEDS: Insulin DETEMIR 100 UNIT/ML X5UNITS SQ SCH (08:10)
--- NOTE | 2019-07-14 09:01 | Internal Med Progress Note ---
<DelfinoMargy - Last Filed: 07/14/19 09:10> Hospitalist Progress Note - Encounter Date of Encounter: 07/14/19 Time of Encounter: 08:56 - Subjective Interval History: PAteint in chair eating breakfast when I entered room. Looked well and in good spirits. He did not complain of any significant pain but did mention that his joint space feels sore. He said "I feel something deep inside the joint, sierra sore, when I move". He stated that he was worried about insurance covering his medicine and if he would have to pay up front or not. - Exam Vitals: Temp Pulse Resp BP Pulse Ox 99.1 F 92 20 171/82 96 07/14/19 06:46 07/14/19 06:46 07/14/19 06:46 07/14/19 06:46 07/14/19 08:20 Exam: Exam: Constitutional: Obese male in no acute distress Head: Normocephalic, atraumatic Eyes: PERRL, EOMI, conjunctiva pink, sclera anicteric Neck: Supple, trachea midline Lungs: Clear to auscultation bilaterally. Nonlabored breathing. No wheezes, rales, or rhonchi noted. Cardiac: RRR. +s1 +s2 No murmurs, clicks, or rubs noted. GI: Abdomen soft, nontender, obese Extremities: Warm, radial pulses palpable and symmetrical. No cyanosis, pedal edema, or calf tenderness. Right arm in sling. Neuro: Alert and oriented 3. No focal deficits. Normal speech. Skin: Warm, dry, and intact. Erythema surrounding right shoulder surgical incision improved.Large dressing surounding incision that was changed last night, 70% covered with wound drainage. - Assessment and Plan (1) Cellulitis of right shoulder Current Visit: Yes Status: Acute (2) DVT prophylaxis Current Visit: Yes Status: Acute (3) Diabetes Current Visit: Yes Status: Acute (4) Diarrhea Current Visit: Yes Status: Acute (5) History of dislocation of shoulder Current Visit: Yes Status: Acute (6) Shoulder abscess Current Visit: Yes Status: Acute (7) Status post reverse total arthroplasty of right shoulder Current Visit: Yes Status: Acute (8) Status post surgery for recurrent dislocation of shoulder Current Visit: Yes Status: Acute - Time Spent with Patient Total time spent is greater than 50% in coordination of care (as documented) at patient's floor/unit and/or counseling patient: Internal Medicine: Result - Labs CBC & Chem 7: 07/14/19 03:00 07/14/19 03:00 Labs: Short CBC 07/14/19 Range/Units 03:00 WBC 8.2 D (4.3-11.1) K/mcL Hgb 9.8 L (12.9-16.9) g/dL Hct 31.8 L (37.5-50.1) % Plt Count 351 (140-400) K/mcL Neutrophils # 5.4 (1.6-8.9) K/mcL BMP 07/14/19 03:00 Sodium 138 Potassium 3.8 Chloride 102 Carbon Dioxide 31 H BUN 15 Creatinine 0.86 Glucose 208 H Calcium 9.0 Consult Discharge Plan - Plan Additional Instructions: Patient is awaiting insurance approval for Levoquin Referrals: Tamera Berg CNP [Advanced Practice Nurse] - 07/28/19 2:40 pm Federico lCark DO [Primary Care Provider] - Prescriptions: Lactobacillus Acidophilus [Acidophilus] 1 each PO BID #60 capsule Transmission Status: Sent to [facility] 1519 levoFLOXacin 750 MG/150 ML [Levaquin Premix 750mg/150 mL] 750 mg IVPB DAILY 42 Days #42 bag Prescription Printed <Tariq Whyte - Last Filed: 07/14/19 12:43> Hospitalist Progress Note - Encounter Date of Encounter: 07/14/19 Time of Encounter: 10:00 - Subjective Interval History: Patient sitting up in chair when I evaluated him. Denies any new complaints overall. No nausea or vomiting. Pain report some soreness in his right shoulder region. Erythema appears to be improving. No fever or chills reported overnight. Continues to have loose stools but frequency improving - Exam Vitals: Temp Pulse Resp BP Pulse Ox 98.6 F 93 18 133/88 97 07/14/19 10:54 07/14/19 10:54 07/14/19 10:54 07/14/19 10:54 07/14/19 10:54 Exam: General: Patient is alert, no acute distress, oriented x 3 Respiratory: Good respiratory effort. Normal breath sounds. No wheezing or crackles. Cardiovascular: Regular rate and rhythm. s1 and s2 normal No clicks, rubs, gallops, or murmurs. No pedal edema Abdomen: Abdomen is soft, nontender. Bowel sounds are present Musculoskeletal: Erythema over the right shoulder joint improving. Mildly tender to palpation. Incision bandaged with HOPE dressing with some serosanguineous drainage Skin: warm, dry, intact. Neuro: Alert oriented x 3 normal cranial nerves, no focal deficits - Assessment and Plan (1) Shoulder abscess Current Visit: Yes Status: Acute (2) Diabetes Current Visit: Yes Status: Acute (3) HTN (hypertension) Current Visit: Yes Status: Chronic (4) CHF (congestive heart failure) Current Visit: Yes Status: Chronic (5) Sleep apnea Current Visit: Yes Status: Chronic - Time Spent with Patient Total time spent is greater than 50% in coordination of care (as documented) at patient's floor/unit and/or counseling patient: Internal Medicine: Result - Labs CBC & Chem 7: 07/14/19 03:00 07/14/19 03:00 Labs: Short CBC 07/14/19 Range/Units 03:00 WBC 8.2 D (4.3-11.1) K/mcL Hgb 9.8 L (12.9-16.9) g/dL Hct 31.8 L (37.5-50.1) % Plt Count 351 (140-400) K/mcL Neutrophils # 5.4 (1.6-8.9) K/mcL BMP 07/14/19 03:00 Sodium 138 Potassium 3.8 Chloride 102 Carbon Dioxide 31 H BUN 15 Creatinine 0.86 Glucose 208 H Calcium 9.0 - Attending Attestation I saw evaluated and examined this patient and reviewed objective data including labs and my medical decision-making was reviewed with the Resident Physician, Medical Student. I agree with the documented findings, disposition and treatment plan as described except to any changes set forth below. We independently had [id number] contact with the patient. Acute Right-sided shoulder abscess: Due to Serratia marcescens. Continue IV Levaquin per infectious disease recommendations. Patient will be on Levaquin for 6 weeks. Awaiting arrangements for patient to receive these antibiotics after discharge. Antibiotic associated diarrhea: Continue lactobacillus. Stool has been negative for C. difficile. Diabetes mellitus type 2: Poorly controlled. We will increase insulin regimen further. Essential hypertension: Continue current antihypertensives. Blood pressure was elevated earlier this morning but has since improved. Coronary artery disease: Continue aspirin, statin, metoprolol DVT prophylaxis with subcutaneous heparin <Margy Saleh - Last Filed: 07/14/19 09:10> (3) Diabetes Qualifiers: Diabetes mellitus type: type 2 Diabetes mellitus extermination inspector insulin use: with care home use Diabetes mellitus complication status: without complication Qualified Code(s): E11.9 - Type 2 diabetes mellitus without complications; Z79.4 - group home (current) use of insulin (4) Diarrhea Qualifiers: Diarrhea type: unspecified type Qualified Code(s): R19.7 - Diarrhea, unspecified <Ameda,Srujan - Last Filed: 07/14/19 12:43> (2) Diabetes Qualifiers: Diabetes mellitus type: type 2 Diabetes mellitus extermination inspector insulin use: with care home use Diabetes mellitus complication status: without complication Qualified Code(s): E11.9 - Type 2 diabetes mellitus without complications; Z79.4 - extermination inspector (current) use of insulin (3) HTN (hypertension) Qualifiers: Hypertension type: essential hypertension Qualified Code(s): I10 - Essential (primary) hypertension (4) CHF (congestive heart failure) Qualifiers: Heart failure type: diastolic Heart failure chronicity: chronic Qualified Code(s): I50.32 - Chronic diastolic (congestive) heart failure (5) Sleep apnea Qualifiers: Sleep apnea type: unspecified type Qualified Code(s): G47.30 - Sleep apnea, unspecified
--- NOTE | 2019-07-14 11:22 | Infectious Disease Progress No ---
ID Progress Note Date of Encounter: 07/14/19 Time of Encounter: 11:20 - Subjective Subjective: Patient seen and examined. No acute events noted overnight. Denies fevers, chills, or rigors. Denies chest pain, shortness of breath, or cough. Denies nausea, vomiting, or constipation. States he has waxing and waning diarrhea. C. diff was negative. Denies abdominal pain or urinary complaints. Denies oral thrush or skin rashes. Reports mild pain "deep" in the shoulder, but states he thinks the redness is improved. - Objective CBC & Chem 7: 07/14/19 03:00 07/14/19 03:00 - Line Documentation Line Documentation: PICC Line (LUE) - Exam Vitals: Temp Pulse Resp BP Pulse Ox 98.6 F 93 18 133/88 97 07/14/19 10:54 07/14/19 10:54 07/14/19 10:54 07/14/19 10:54 07/14/19 10:54 Exam: Head: Atraumatic, normal inspection, normocephalic. Eye: EOMI, PERRLA, no scleral icterus noted. ENT: Mucous membranes moist. No odontogenic infection noted. Neck: Normal inspection, no meningismus. Respiratory: Clear to auscultation. No rales, respiratory distress, rhonchi, or wheezes noted. Cardiovascular: Regular rate and rhythm, S1 and S2 audible. No murmurs, rubs, or gallops. GI: Soft, obese, normal bowel sounds. Non-tender. Extremities:No joint swelling, pedal edema noted. Right shoulder surgical incision with HOPE dressing intact. Moderate amount of seropurulent drainage noted on the dressing. Erythema improved. Tenderness noted with palpation of the axillary area. ROM not assessed. Neurological: Alert, oriented 3, no focal deficits. Psychiatric: normal affect, normal mood. Skin: Dry, intact, warm. Normal color. No rashes. - Assessment and Plan (1) Shoulder abscess Status: Acute Location: Right shoulder. Causative organism: S. marcescens. CT of the right shoulder shows a large air and fluid filled collection overlying the anterior aspect of the right shoulder arthroplasty involving the subcutaneous tissues, anterior shoulder musculature, and surrounding the prosthesis, most consistent with abscess. Likely secondary to right shoulder surgery. No SIRS criteria. ESR 112, CRP 142. Ortho consulted. Status post tight glenohumeral joint irrigation and debridement 07/09/[address] Wyatt. Operative note reviewed. Intra-op findings discussed with Dr. Wyatt. Intra-op cultures as above. Currently on Levaquin. SNOMED Code(s): 47247455 (2) Status post reverse total arthroplasty of right shoulder Status: Acute SNOMED Code(s): 96087898736826922, 48131082272653997 (3) Diabetes Status: Acute Recommend aggressive glucose monitoring and control to promote wound healing and prevent reinfection. Management per the primary team. Qualifiers: Diabetes mellitus type: type 2 Diabetes mellitus termite technician insulin use: with termite technician use Diabetes mellitus complication status: without complication Qualified Code(s): E11.9 - Type 2 diabetes mellitus without complications; Z79.4 - residential (current) use of insulin SNOMED Code(s): 18537210 (4) HTN (hypertension) Status: Chronic Qualifiers: Hypertension type: essential hypertension Qualified Code(s): I10 - Essential (primary) hypertension SNOMED Code(s): 10609239 (5) CHF (congestive heart failure) Status: Chronic Qualifiers: Heart failure type: diastolic Heart failure chronicity: chronic Qualified Code(s): I50.32 - Chronic diastolic (congestive) heart failure SNOMED Code(s): 76997890 (6) Sleep apnea Status: Chronic Qualifiers: Sleep apnea type: unspecified type Qualified Code(s): G47.30 - Sleep apnea, unspecified SNOMED Code(s): 23403036 (7) Arthritis Status: Chronic SNOMED Code(s): 1798579 (8) Diarrhea Status: Acute Likely chronic. He reported having diarrhea prior to admission. C. diff was negative. Probiotics BID. Qualifiers: Diarrhea type: unspecified type Qualified Code(s): R19.7 - Diarrhea, unspecified SNOMED Code(s): 63222335 - Recommendations Recommendations: Wound care and activity per the ortho team. Continue Levaquin 750mg IV daily. Duration of treatment depends on the clinical picture, but likely 4-6 weeks. Monitor renal function and for drug toxicity and dose-adjust antibiotics. guest services agent to assist with discharge planning. Will need weekly CBC, BUN/Cr, ESR, CRP. Will need weekly PICC care per protocol. Follow up with ID 07/28/19 at 1440. Consult Discharge Plan - Plan Instructions: Cellulitis (DC) Additional Instructions: Discharge Instructions: Total Shoulder Please call [facility] ([phone]), your Primary Care Physician, or report to the Emergency Room if you have any of the following symptoms: Nausea, vomiting, fever greater that 101.5, swelling, chest pain, shortness of breath, increased pain/redness/drainage/odor for your incision site, numbness/tingling, or any other concerning symptoms. ACTIVITY: Always keep your arm in the sling. Do not raise your arm away from your body. Do not use your arm to help with getting in or out of bed. No weight bearing permitted. Only perform those exercises given to you by your therapist. Incentive Spirometer 10 times an hour. MEDICATIONS: Upon discharge resume your home medications. Take all the medications as prescribed. Take a stool softener if taking narcotic pain medications. Stool softeners are only effective if you drink enough fluids. Drink 6-8 glass of water or fluids a day, unless this is not allowed for another health problem. Despite using stool softeners, if you haven't had a bowel movement in 3 days, please switch to a gentle laxative. Gentle laxatives are sold over the counter. You should have a bowel movement within 24 hours, if not call the office. You will be discharged from the hospital with a prescription for pain medication. You are encouraged to decrease the use of narcotic pain medication as tolerated. Should you require a refill, please call the office. [facility] prescribes narcotic pain medication for only 4-6 weeks after surgery. If you require pain medication beyond this time period, you may be referred to your Primary Care Physician or to the Pain Clinic for further evaluation. Plan ahead for refills on pain medication as many narcotics either need to be picked up at the office or mailed. It is best to call 48-72 hours in advance of needing a prescription refill so you don't run out of medication. To help control the post-operative pain, you may take NSAIDs (Aleve,Advil, Motrin, Ibuprofen, Naprosyn) or Tylenol as prescribed on the bottle in addition to the pain medication. WOUND CARE: Leave the dressing on for 7-10 days. You may change the dressing if it becomes saturated greater than 50%. Do not get the dressing wet at anytime. Wash your hands with antibacterial soap, rinse and dry prior to any wound care. If you have jovani the visiting nurse or rehab facility can remove the stapes 10-14 days after surgery and place steri-strips across the wound. Leave the steri-strips in place until they fall off on their own. You may let water from the shower run on top of the steri-strips. If you do not have a visi ting nurse or rehab facility, you will need to return to the office at 10-14 days for the jovani to be removed. If you have itching or redness around the dressing call the office. FOLLOW-UP: Please follow up with your surgeon in the orthopedic clinic, as scheduledPatient is awaiting insurance approval for Levoquin Referrals: Tamera Berg CNP [Advanced Practice Nurse] - 07/28/19 2:40 pm Jonathan Wyatt MD [Non-Partnered Physician] - 07/16/19 11:20 am Federico Clark DO [Primary Care Provider] - 09/28/19 8:30 am Prescriptions: Lactobacillus Acidophilus [Acidophilus] 1 each PO BID #60 capsule Prescription Printed levoFLOXacin 750 MG/150 ML [Levaquin Premix 750mg/150 mL] 750 mg IVPB DAILY 42 Days #42 bag Prescription Printed - Attending Attestation I have personally performed a face to face evaluation on this patient. I have reviewed and agree with the care plan. History and Exam by me shows: Assessment and plan: right shoulder abscess CT right shoulder large air-fluid level collection overlying the anterior aspect of the right shoulder consistent with an abscess causative organism Serratia marcescens status post right glenohumeral joint irrigation and debridement. Intra-Op reveals inflammatory fluid but no jitendra purulence. 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 Start Levaquin 750mg IV daily. Duration of treatment depends on the clinical picture, but likely 4-6 weeks. Monitor renal function and for drug toxicity and dose-adjust antibiotics. Consult VAT for PICC insertion. Will need weekly CBC, BUN/Cr, ESR, CRP. Will need weekly PICC care per protocol. Follow up with ID 07/28/19 at 1440.
[2019-07-14] MEDS ORDERED: Insulin Human Regular 5 UNIT in 0.9 % Sodium Chloride 10 ML IV ONE (12:08)
[2019-07-14 14:29] VITALS: BP 135/72
[2019-07-14] MEDS: levoFLOXacin 750 MG/150 ML 750 MG/150 ML BAG IVPB SCH (15:17)
[2019-07-14] MEDS ORDERED: Insulin LISPRO 300 UNITS/3 ML VIAL SQ SCH (17:00)
[2019-07-14] MEDS ORDERED: Insulin DETEMIR 100 UNIT/ML X5UNITS SQ SCH (21:00)
== END 2019-07-14 17:38 | disposition home or self-care (01) | DRG 857 ==
LOC: 3NENU → SUATTDRO 15:14
PROVIDERS: ADMIT Internal Medicine; ATTEND Internal Medicine

== ENCOUNTER 2020-09-19 14:10 | Inpatient (IN) ==
[2020-09-19] MEDS ORDERED: CeFAZolin Syr 3,000MG/30 ML 3,000 MG/30 ML SYRINGE IVPB ONE (14:46)
[2020-09-19] MEDS ORDERED: Ringers Solution, Lactated 1,000 ML IVC SCH ×2 (15:00→18:10)
[2020-09-19] MEDS ORDERED: Vancomycin 2,000 MG/520 ML IV.SOLN IVPB SCH (15:00)
[2020-09-19] MEDS ORDERED: Acetaminophen IV 1,000 MG/100 ML INFUS..BTL IVPB ONE (15:05)
[2020-09-19] MEDS ORDERED: Ondansetron 4 MG/2 ML VIAL IVP PRN ×2 (15:05→18:10)
[2020-09-19] MEDS ORDERED: Dexmedetomidine HCl 0 MCG/0 ML MLS IVC ONE (15:06)
[2020-09-19] MEDS ORDERED: *HR* FentaNYL (PF) 100 MCG/2 ML VIAL ONE (15:08)
[2020-09-19] MEDS ORDERED: *HR* Propofol 200 MG/20 ML VIAL IVP ONE ×2 (15:08→15:19)
[2020-09-19] MEDS ORDERED: Lidocaine -MPF 2% 2 ML VIAL ONE ×2 (15:10→15:19)
[2020-09-19] MEDS ORDERED: *HR* Succinylcholine 200 MG/10 ML VIAL IVP ONE ×3 (15:10→16:13)
[2020-09-19] MEDS ORDERED: Lidocaine -MPF 4% 5 ML AMPUL ONE (15:14)
[2020-09-19] MEDS ORDERED: Ethanol\\Acetic Acid\\Na Ace\\Ben 1,000 ML IRRIG.SOLN IR ONE (15:17)
[2020-09-19] MEDS ORDERED: Vancomycin 1,000 MG VIAL ONE (15:17)
[2020-09-19] MEDS ORDERED: Dexamethasone 4 MG/ML VIAL ONE ×2 (15:19→15:47)
[2020-09-19] MEDS ORDERED: Ondansetron 4 MG/2 ML VIAL ONE ×2 (15:19→15:47)
[2020-09-19] MEDS ORDERED: Povidone-Iodine 45 ML, Sodium Chloride IRRigation 1,000 ML IR ONE (15:30)
[2020-09-19] MEDS ORDERED: EPHEDrine 50 MG/ML VIAL ONE (15:48)
[2020-09-19] MEDS ORDERED: *HR* PHENYLEPHRINE 1,000 MCG/10 ML SYRINGE IVP ONE ×2 (15:51→15:57)
[2020-09-19] MEDS ORDERED: *HR* Rocuronium Bromide 50 MG/5 ML VIAL ONE (16:02)
[2020-09-19] MEDS ORDERED: *HR* Vasopressin 20 UNIT/ML VIAL ONE (16:02)
[2020-09-19] MEDS ORDERED: Ketorolac 30 MG/ML VIAL ONE (16:26)
[2020-09-19] MEDS: *HR* HYDROmorphone PF 0.5 MG/0.5 ML SYRINGE IVP PRN ×3 (16:58→17:19)
[2020-09-19 17:31] LABS: Hematocrit 39.1 % (37.5-50.1); Hemoglobin 12.1 g/dL (12.9-16.9)
[2020-09-19] MEDS ORDERED: *HR* Enoxaparin 30 MG/0.3 ML SYRINGE SQ SCH (18:00)
[2020-09-19] MEDS ORDERED: Sennosides 8.6 MG TABLET PO PRN (18:10)
[2020-09-19] MEDS ORDERED: Dextrose Gel 15 GM/37.5 ML TUBE PO PRN ×2 (18:10)
[2020-09-19] MEDS ORDERED: MOM Conc 10 ML UD.LIQ PO PRN (18:10)
[2020-09-19] MEDS ORDERED: *HR* OxyCODONE Immed Rel 5 MG TABLET PO PRN (18:10)
[2020-09-19] MEDS ORDERED: *HR* Dextrose 50 % in Water (Vial) 50 ML VIAL IVP PRN (18:10)
[2020-09-19] MEDS ORDERED: Naloxone 0.4 MG/ML INJ IVP PRN (18:10)
[2020-09-19] MEDS ORDERED: *HR* OxyCODONE/APAP 5/325 TABLET PO PRN (18:10)
[2020-09-19] MEDS ORDERED: D5% in Water 1,000 ML IVC PRN (18:10)
[2020-09-19] MEDS: Insulin LISPRO 300 UNITS/3 ML VIAL SQ SCH (20:15)
[2020-09-19] MEDS ORDERED: Insulin LISPRO 300 UNITS/3 ML VIAL SQ SCH (21:00)
[2020-09-20] MEDS ORDERED: Vancomycin 2,000 MG/520 ML IV.SOLN IVPB ONE (03:00)
[2020-09-20] MEDS ORDERED: *HR* Enoxaparin 30 MG/0.3 ML SYRINGE SQ SCH (06:00)
[2020-09-20 07:06] LABS: Hematocrit 37.7 % (37.5-50.1); Hemoglobin 11.5 g/dL (12.9-16.9)
[2020-09-20 07:22] LABS: BUN/Creatinine Ratio 21 (6-26); Blood Urea Nitrogen 21 mg/dL (8-23); Carbon Dioxide 29 mEq/L (23-29); Chloride 105 mEq/L (98-107); Glucose 242 mg/dL (70-105); Osmolality,Calculated 293 (280-300); Potassium 4.8 mEq/L (3.5-5.1); Sodium 136 mEq/L (136-145); eGFR For African Americans > 60 (> 60); eGFR For Non-African Americans > 60 (> 60)
[2020-09-20] MEDS: Insulin LISPRO 300 UNITS/3 ML VIAL SQ SCH ×2 (07:53→12:17)
[2020-09-20 12:00] VITALS: BP 150/66
== END 2020-09-20 15:30 | disposition home or self-care (01) | DRG 483 ==
LOC: SAMDAY 14:10 → 3NENU 18:04
PROVIDERS: ADMIT Orthopaedic Surgery; ATTEND Orthopaedic Surgery

== ENCOUNTER 2020-11-18 14:00 | Inpatient (IN) ==
[2020-11-18] MEDS ORDERED: Vancomycin 1,750 MG/517.5 ML IV.SOLN IVPB ONE (14:31)
[2020-11-18] MEDS ORDERED: Albuterol 2.5 MG/3 ML NEBULIZER IH PRN (14:31)
[2020-11-18] MEDS ORDERED: *HR* Succinylcholine 200 MG/10 ML VIAL IVP ONE (14:43)
[2020-11-18] MEDS ORDERED: *HR* Rocuronium Bromide 50 MG/5 ML VIAL ONE ×2 (14:44→17:04)
[2020-11-18] MEDS ORDERED: *HR* Propofol 200 MG/20 ML VIAL IVP ONE (14:44)
[2020-11-18] MEDS ORDERED: Ondansetron 4 MG/2 ML VIAL ONE (14:44)
[2020-11-18] MEDS ORDERED: Lidocaine -MPF 2% 2 ML VIAL ONE (14:44)
[2020-11-18] MEDS ORDERED: Ringers Solution, Lactated 1,000 ML IVC SCH ×2 (14:45→20:22)
[2020-11-18] MEDS ORDERED: *HR* Labetalol 20 MG/4 ML SYRINGE IVP PRN (14:48)
[2020-11-18] MEDS ORDERED: Ondansetron 4 MG/2 ML VIAL IVP PRN ×2 (14:48→20:22)
[2020-11-18] MEDS ORDERED: Aspirin 81 MG TAB.CHEW PO ONE (14:53)
[2020-11-18] MEDS ORDERED: Celecoxib 200 MG CAPSULE PO ONE (15:30)
[2020-11-18] MEDS ORDERED: Famotidine 20 MG/2 ML VIAL IVP ONE (15:30)
[2020-11-18] MEDS ORDERED: Gabapentin 300 MG CAPSULE PO ONE (15:30)
[2020-11-18] MEDS ORDERED: *HR* FentaNYL (PF) 100 MCG/2 ML VIAL ONE (15:32)
[2020-11-18 16:00] LABS: Hemoglobin 11.2 g/dL (12.9-16.9)
[2020-11-18] MEDS ORDERED: Ethanol\\Acetic Acid\\Na Ace\\Ben 1,000 ML IRRIG.SOLN IR ONE ×3 (16:13→17:34)
[2020-11-18] MEDS ORDERED: Vancomycin 1,000 MG VIAL ONE ×2 (16:13→17:15)
[2020-11-18] MEDS ORDERED: EPHEDrine 50 MG/ML VIAL ONE (17:03)
[2020-11-18] MEDS ORDERED: *HR* Vasopressin 20 UNIT/ML VIAL ONE (17:07)
[2020-11-18] MEDS: *HR* HYDROmorphone (PF) 1 MG/ML SYRINGE IVP PRN ×4 (18:40→19:06)
[2020-11-18] MEDS ORDERED: Dextrose Gel 15 GM/37.5 ML TUBE PO PRN ×2 (20:22)
[2020-11-18] MEDS ORDERED: *HR* Dextrose 50 % in Water (Vial) 50 ML VIAL IVP PRN (20:22)
[2020-11-18] MEDS ORDERED: Naloxone 0.4 MG/ML INJ IVP PRN (20:22)
[2020-11-18] MEDS ORDERED: D5% in Water 1,000 ML IVC PRN (20:22)
[2020-11-18] MEDS ORDERED: MOM Conc 10 ML UD.LIQ PO PRN (21:00)
[2020-11-18] MEDS ORDERED: Sennosides 8.6 MG TABLET PO PRN (21:00)
[2020-11-18] MEDS: Insulin LISPRO 300 UNITS/3 ML VIAL SUBQ SCH ×2 (21:57→22:07)
[2020-11-19 01:12] LABS: Hematocrit 35.8 % (37.5-50.1); Hemoglobin 10.7 g/dL (12.9-16.9)
[2020-11-19 01:27] LABS: BUN/Creatinine Ratio 10 (6-26); Blood Urea Nitrogen 10 mg/dL (8-23); Calcium 8.9 mg/dL (8.6-10.3); Carbon Dioxide 25 mEq/L (23-29); Chloride 102 mEq/L (98-107); Glucose 299 mg/dL (70-105); Osmolality,Calculated 290 (280-300); Potassium 5.1 mEq/L (3.5-5.1); Sodium 135 mEq/L (136-145); eGFR For African Americans > 60 (> 60); eGFR For Non-African Americans > 60 (> 60)
[2020-11-19] MEDS: *HR* OxyCODONE Immed Rel 5 MG TABLET PO PRN ×2 (02:18→08:15)
[2020-11-19] MEDS ORDERED: Vancomycin 2,000 MG/520 ML IV.SOLN IVPB ONE (03:00)
[2020-11-19] MEDS ORDERED: levoFLOXacin 750 MG TABLET PO ONE (05:57)
[2020-11-19] MEDS: Insulin LISPRO 300 UNITS/3 ML VIAL SUBQ SCH ×4 (09:52→20:37)
[2020-11-19] MEDS: *HR* OxyCODONE/APAP 5/325 TABLET PO PRN ×2 (13:36→22:27)
[2020-11-19] MEDS ORDERED: Vancomycin 2,000 MG/520 ML IV.SOLN IVPB SCH (14:00)
[2020-11-19] MEDS: *HR* Enoxaparin 30 MG/0.3 ML SYRINGE SQ SCH (17:08)
[2020-11-19] MEDS ORDERED: *HR* OxyCODONE Immed Rel 5 MG TABLET PO PRN (22:19)
[2020-11-20 01:56] LABS: Hematocrit 36.7 % (37.5-50.1); Hemoglobin 10.9 g/dL (12.9-16.9)
[2020-11-20 02:17] LABS: BUN/Creatinine Ratio 17 (6-26); Blood Urea Nitrogen 17 mg/dL (8-23); Calcium 8.9 mg/dL (8.6-10.3); Carbon Dioxide 31 mEq/L (23-29); Chloride 104 mEq/L (98-107); Glucose 223 mg/dL (70-105); Osmolality,Calculated 302 (280-300); Sodium 142 mEq/L (136-145); eGFR For African Americans > 60 (> 60); eGFR For Non-African Americans > 60 (> 60)
[2020-11-20] MEDS: Vancomycin 1,750 MG/517.5 ML IV.SOLN IVPB SCH ×2 (03:53→15:59)
[2020-11-20] MEDS: *HR* Enoxaparin 30 MG/0.3 ML SYRINGE SQ SCH ×2 (05:32→17:38)
[2020-11-20] MEDS: Gabapentin 400 MG CAPSULE PO SCH ×3 (08:39→20:34)
[2020-11-20] MEDS: Aspirin Enteric Coated 81 MG Tablet PO SCH (08:39)
[2020-11-20] MEDS: levoFLOXacin 750 MG TABLET PO SCH (08:40)
[2020-11-20] MEDS: Venlafaxine XR (24 HR) 75 MG CAP.ER.24H PO SCH (08:40)
[2020-11-20] MEDS: Furosemide 40 MG TABLET PO SCH (08:41)
[2020-11-20] MEDS: *HR* Glimepiride 4 MG TABLET PO SCH (08:41)
[2020-11-20] MEDS: Multivit/Ca/Min/Fe/FA 1 TAB TABLET PO SCH (08:41)
[2020-11-20] MEDS: hydrOXYzine pamoate 25 MG CAPSULE PO SCH ×3 (08:41→20:34)
[2020-11-20] MEDS: *HR* Pioglitazone 45 MG TABLET PO SCH (08:41)
[2020-11-20] MEDS: Insulin LISPRO 300 UNITS/3 ML VIAL SUBQ SCH ×4 (10:04→20:34)
[2020-11-20] MEDS: *HR* Metformin 500 MG TABLET PO SCH ×2 (11:31→20:35)
[2020-11-20] MEDS: amLODIPine 5 MG TABLET PO SCH (11:32)
[2020-11-20] MEDS: lisinopriL 5 MG TABLET PO SCH (11:32)
[2020-11-20] MEDS ORDERED: Metoprolol XL (24 HR) Succ 50 MG TAB.ER.24H PO SCH (18:00)
[2020-11-20] MEDS ORDERED: Isosorbide MONOnitrate (24 HR) 60 MG TAB.ER.24H PO SCH (21:00)
[2020-11-20] MEDS ORDERED: Insulin DETEMIR 100 UNIT/ML X5UNITS SUBQ SCH (21:00)
[2020-11-21] MEDS: *HR* Enoxaparin 30 MG/0.3 ML SYRINGE SQ SCH ×3 (05:00→17:17)
[2020-11-21] MEDS: Vancomycin 1,750 MG/517.5 ML IV.SOLN IVPB SCH (05:00)
[2020-11-21] MEDS: *HR* OxyCODONE/APAP 5/325 TABLET PO PRN ×2 (05:12→09:26)
[2020-11-21] MEDS: Aspirin Enteric Coated 81 MG Tablet PO SCH (08:12)
[2020-11-21] MEDS: Venlafaxine XR (24 HR) 75 MG CAP.ER.24H PO SCH ×2 (08:12→08:24)
[2020-11-21] MEDS: Furosemide 40 MG TABLET PO SCH (08:12)
[2020-11-21] MEDS: Multivit/Ca/Min/Fe/FA 1 TAB TABLET PO SCH (08:13)
[2020-11-21] MEDS: *HR* Pioglitazone 45 MG TABLET PO SCH (08:23)
[2020-11-21] MEDS: Gabapentin 400 MG CAPSULE PO SCH ×2 (08:24→19:45)
[2020-11-21] MEDS: levoFLOXacin 750 MG TABLET PO SCH (08:24)
[2020-11-21] MEDS: hydrOXYzine pamoate 25 MG CAPSULE PO SCH ×2 (08:24→19:45)
[2020-11-21] MEDS: *HR* Glimepiride 4 MG TABLET PO SCH (08:24)
[2020-11-21] MEDS: Insulin LISPRO 300 UNITS/3 ML VIAL SUBQ SCH ×4 (08:32→19:52)
[2020-11-21] MEDS ORDERED: Vancomycin 1,000 MG VIAL ONE ×2 (11:23→13:06)
[2020-11-21] MEDS ORDERED: Ethanol\\Acetic Acid\\Na Ace\\Ben 1,000 ML IRRIG.SOLN IR ONE (11:23)
[2020-11-21] MEDS ORDERED: Lidocaine HCL 4 ML Topical Solution (Laryng-O-Jet Kit Sterile Pak) TP ONE (11:26)
[2020-11-21] MEDS ORDERED: Ondansetron 4 MG/2 ML VIAL ONE (11:26)
[2020-11-21] MEDS ORDERED: *HR* Propofol 200 MG/20 ML VIAL IVP ONE (11:26)
[2020-11-21] MEDS ORDERED: Lidocaine -MPF 2% 2 ML VIAL ONE (11:26)
[2020-11-21] MEDS ORDERED: Povidone-Iodine 45 ML, Sodium Chloride IRRigation 1,000 ML IR ONE ×2 (11:30→15:26)
[2020-11-21] MEDS ORDERED: Albuterol 2.5 MG/3 ML NEBULIZER IH PRN ×2 (11:33→15:26)
[2020-11-21] MEDS ORDERED: Ondansetron 4 MG/2 ML VIAL IVP PRN ×3 (11:33→15:26)
[2020-11-21] MEDS ORDERED: *HR* Meperidine 25 MG/ML SYRINGE IVP PRN ×2 (11:33→15:26)
[2020-11-21] MEDS ORDERED: *HR* HYDROmorphone PF 0.5 MG/0.5 ML SYRINGE IVP PRN ×2 (11:33→15:26)
[2020-11-21] MEDS ORDERED: *HR* Midazolam HCl 2 MG/2 ML VIAL ONE (11:35)
[2020-11-21] MEDS ORDERED: *HR* FentaNYL (PF) 100 MCG/2 ML VIAL ONE (11:36)
[2020-11-21] MEDS ORDERED: *HR* Phenylephrine 10 MG/ML VIAL ONE (12:09)
[2020-11-21] MEDS ORDERED: Sugammadex Sodium 200 MG/2 ML VIAL IV ONE (13:09)
[2020-11-21] MEDS ORDERED: *HR* Rocuronium Bromide 50 MG/5 ML VIAL ONE (13:09)
[2020-11-21] MEDS: *HR* Metformin 500 MG TABLET PO SCH ×2 (13:14→19:46)
[2020-11-21] MEDS: lisinopriL 5 MG TABLET PO SCH (13:14)
[2020-11-21] MEDS: amLODIPine 5 MG TABLET PO SCH (13:14)
[2020-11-21 14:54] LABS: Hemoglobin 10.2 g/dL (12.9-16.9)
[2020-11-21] MEDS ORDERED: Dextrose Gel 15 GM/37.5 ML TUBE PO PRN ×2 (15:26)
[2020-11-21] MEDS ORDERED: *HR* Dextrose 50 % in Water (Vial) 50 ML VIAL IVP PRN (15:26)
[2020-11-21] MEDS ORDERED: *HR* OxyCODONE/APAP 5/325 TABLET PO PRN (15:26)
[2020-11-21] MEDS ORDERED: *HR* OxyCODONE Immed Rel 5 MG TABLET PO PRN (15:26)
[2020-11-21] MEDS ORDERED: MOM Conc 10 ML UD.LIQ PO PRN (15:26)
[2020-11-21] MEDS ORDERED: Ringers Solution, Lactated 1,000 ML IVC SCH (15:26)
[2020-11-21] MEDS ORDERED: D5% in Water 1,000 ML IVC PRN (15:26)
[2020-11-21] MEDS ORDERED: Naloxone 0.4 MG/ML INJ IVP PRN (15:26)
[2020-11-21] MEDS ORDERED: Sennosides 8.6 MG TABLET PO PRN (15:26)
[2020-11-21] MEDS: *HR* OxyCODONE Immed Rel 5 MG TABLET PO PRN ×2 (15:55→19:58)
[2020-11-21] MEDS ORDERED: Vancomycin 1,750 MG/517.5 ML IV.SOLN IVPB SCH (16:00)
[2020-11-21] MEDS: Metoprolol XL (24 HR) Succ 50 MG TAB.ER.24H PO SCH (17:16)
[2020-11-21] MEDS: Isosorbide MONOnitrate (24 HR) 60 MG TAB.ER.24H PO SCH (19:45)
[2020-11-21] MEDS ORDERED: NON-FORMULARY MEDICATION 1 EACH EACH (Ezetimibe [Zetia] 10 MG) PO SCH (21:00)
[2020-11-21] MEDS: Vancomycin 1,250 MG/262.5 ML IV.SOLN IVPB SCH (22:10)
[2020-11-21] MEDS: Insulin DETEMIR 100 UNIT/ML X5UNITS SUBQ SCH (22:10)
[2020-11-22] MEDS: *HR* OxyCODONE Immed Rel 5 MG TABLET PO PRN ×5 (00:06→23:12)
[2020-11-22] MEDS: *HR* Enoxaparin 30 MG/0.3 ML SYRINGE SQ SCH ×2 (04:48→19:04)
[2020-11-22] MEDS: Venlafaxine XR (24 HR) 75 MG CAP.ER.24H PO SCH (08:47)
[2020-11-22] MEDS: *HR* Pioglitazone 45 MG TABLET PO SCH (08:47)
[2020-11-22] MEDS: *HR* Glimepiride 4 MG TABLET PO SCH (08:48)
[2020-11-22] MEDS: levoFLOXacin 750 MG TABLET PO SCH (08:48)
[2020-11-22] MEDS: Aspirin Enteric Coated 81 MG Tablet PO SCH (08:49)
[2020-11-22] MEDS: Multivit/Ca/Min/Fe/FA 1 TAB TABLET PO SCH (08:49)
[2020-11-22] MEDS: hydrOXYzine pamoate 25 MG CAPSULE PO SCH ×3 (08:49→23:04)
[2020-11-22] MEDS: Furosemide 40 MG TABLET PO SCH (08:49)
[2020-11-22] MEDS: Gabapentin 400 MG CAPSULE PO SCH ×3 (08:49→23:03)
[2020-11-22] MEDS: Insulin LISPRO 300 UNITS/3 ML VIAL SUBQ SCH ×4 (08:50→23:07)
[2020-11-22] MEDS: amLODIPine 5 MG TABLET PO SCH (12:56)
[2020-11-22] MEDS: lisinopriL 5 MG TABLET PO SCH (12:57)
[2020-11-22] MEDS: *HR* Metformin 500 MG TABLET PO SCH ×2 (12:57→23:04)
[2020-11-22] MEDS: Vancomycin 1,250 MG/262.5 ML IV.SOLN IVPB SCH ×2 (12:57→23:02)
[2020-11-22 13:39] LABS: eGFR For African Americans > 60 (> 60); eGFR For Non-African Americans > 60 (> 60)
[2020-11-22] MEDS: Metoprolol XL (24 HR) Succ 50 MG TAB.ER.24H PO SCH (19:04)
[2020-11-22] MEDS: Insulin DETEMIR 100 UNIT/ML X5UNITS SUBQ SCH (23:05)
[2020-11-22] MEDS: Isosorbide MONOnitrate (24 HR) 60 MG TAB.ER.24H PO SCH (23:05)
[2020-11-23] MEDS: *HR* OxyCODONE Immed Rel 5 MG TABLET PO PRN ×3 (06:03→18:00)
[2020-11-23] MEDS: *HR* Enoxaparin 30 MG/0.3 ML SYRINGE SQ SCH ×2 (06:03→17:54)
[2020-11-23 06:52] LABS: Hematocrit 32.4 % (37.5-50.1); Hemoglobin 9.7 g/dL (12.9-16.9); Mean Corpuscular HGB Conc 29.9 g/dL (31.6-35.5); Mean Corpuscular Hemoglobin 26.1 pg (28.0-33.3); Mean Corpuscular Volume 87.3 fL (83.0-100.0); Mean Platelet Volume 9.2 fL (9.4-12.4); Platelet Count 233 K/mcL (140-400); Red Blood Count 3.71 M/mcL (4.19-5.50); Red Cell Distribution Width 15.8 % (11.5-14.5); White Blood Count 9.1 K/mcL (4.3-11.1)
[2020-11-23 07:06] LABS: BUN/Creatinine Ratio 22 (6-26); Blood Urea Nitrogen 27 mg/dL (8-23); Calcium 8.5 mg/dL (8.6-10.3); Carbon Dioxide 34 mEq/L (23-29); Chloride 103 mEq/L (98-107); Glucose 85 mg/dL (70-105); Osmolality,Calculated 296 (280-300); Sodium 141 mEq/L (136-145); eGFR For African Americans > 60 (> 60); eGFR For Non-African Americans > 60 (> 60)
[2020-11-23] MEDS: Venlafaxine XR (24 HR) 75 MG CAP.ER.24H PO SCH (08:02)
[2020-11-23] MEDS: Multivit/Ca/Min/Fe/FA 1 TAB TABLET PO SCH (08:03)
[2020-11-23] MEDS: Aspirin Enteric Coated 81 MG Tablet PO SCH (08:03)
[2020-11-23] MEDS: Furosemide 40 MG TABLET PO SCH (08:03)
[2020-11-23] MEDS: *HR* Glimepiride 4 MG TABLET PO SCH (08:03)
[2020-11-23] MEDS: hydrOXYzine pamoate 25 MG CAPSULE PO SCH ×3 (08:03→21:44)
[2020-11-23] MEDS: levoFLOXacin 750 MG TABLET PO SCH (08:04)
[2020-11-23] MEDS: Gabapentin 400 MG CAPSULE PO SCH ×3 (08:04→21:43)
[2020-11-23] MEDS: Insulin LISPRO 300 UNITS/3 ML VIAL SUBQ SCH ×4 (08:04→21:45)
[2020-11-23] MEDS: *HR* Pioglitazone 45 MG TABLET PO SCH (08:04)
[2020-11-23] MEDS: *HR* Metformin 500 MG TABLET PO SCH ×2 (10:38→21:43)
[2020-11-23] MEDS: lisinopriL 5 MG TABLET PO SCH (10:39)
[2020-11-23] MEDS: amLODIPine 5 MG TABLET PO SCH (10:39)
[2020-11-23] MEDS: Vancomycin 1,250 MG/262.5 ML IV.SOLN IVPB SCH (10:39)
[2020-11-23] MEDS: Metoprolol XL (24 HR) Succ 50 MG TAB.ER.24H PO SCH (17:55)
[2020-11-23] MEDS: Isosorbide MONOnitrate (24 HR) 60 MG TAB.ER.24H PO SCH (21:45)
[2020-11-23] MEDS: Insulin DETEMIR 100 UNIT/ML X5UNITS SUBQ SCH (21:49)
[2020-11-24] MEDS: *HR* OxyCODONE Immed Rel 5 MG TABLET PO PRN ×3 (01:20→14:49)
[2020-11-24] MEDS: *HR* Enoxaparin 30 MG/0.3 ML SYRINGE SQ SCH (06:06)
[2020-11-24] MEDS: Insulin LISPRO 300 UNITS/3 ML VIAL SUBQ SCH ×2 (07:35→12:24)
[2020-11-24] MEDS: levoFLOXacin 750 MG TABLET PO SCH (07:36)
[2020-11-24] MEDS: Aspirin Enteric Coated 81 MG Tablet PO SCH (07:36)
[2020-11-24] MEDS: hydrOXYzine pamoate 25 MG CAPSULE PO SCH ×2 (07:36→14:48)
[2020-11-24] MEDS: Gabapentin 400 MG CAPSULE PO SCH ×2 (07:36→14:48)
[2020-11-24] MEDS: Furosemide 40 MG TABLET PO SCH (07:36)
[2020-11-24] MEDS: *HR* Pioglitazone 45 MG TABLET PO SCH (07:36)
[2020-11-24] MEDS: Venlafaxine XR (24 HR) 75 MG CAP.ER.24H PO SCH (07:36)
[2020-11-24] MEDS: *HR* Glimepiride 4 MG TABLET PO SCH (07:37)
[2020-11-24] MEDS: Multivit/Ca/Min/Fe/FA 1 TAB TABLET PO SCH (07:37)
[2020-11-24] MEDS: amLODIPine 5 MG TABLET PO SCH (11:24)
[2020-11-24] MEDS: lisinopriL 5 MG TABLET PO SCH (11:24)
[2020-11-24] MEDS: *HR* Metformin 500 MG TABLET PO SCH (12:25)
[2020-11-24 14:16] LABS: Adenovirus Not Detected (Not Detect); Bordetella Pertussis Not Detected (Not Detect); Chlamydophila pneumoniae Not Detected (Not Detect); Coronavirus 229E Not Detected (Not Detect); Coronavirus HKU1 Not Detected (Not Detect); Coronavirus NL63 Not Detected (Not Detect); Coronavirus OC43 Not Detected (Not Detect); Human Metapneumovirus Not Detected (Not Detect); Human Rhinovirus/Enterovirus Not Detected (Not Detect); Influenza A Subtype 2009 H1 Not Detected (Not Detect); Influenza B Not Detected (Not Detect); Mycoplasma pneumoniae Not Detected (Not Detect); Parainfluenza Virus 1 Not Detected (Not Detect); Parainfluenza Virus 2 Not Detected (Not Detect); Parainfluenza Virus 3 Not Detected (Not Detect); Parainfluenza Virus 4 Not Detected (Not Detect); Respiratory Syncytial Virus Not Detected (Not Detect); SARS-CoV-2 Not Detected (Not Detect)
[2020-11-24 16:08] VITALS: BP 166/66
== END 2020-11-24 16:00 | DRG 483 ==
LOC: SAMDAY 14:00 → 3NENU 20:23
PROVIDERS: ADMIT Orthopaedic Surgery; ATTEND Orthopaedic Surgery